=== PATIENT | female | born 1940 | race Caucasian/White ===

== ENCOUNTER → 2019-01-01 | Outpatient (CLI) | payer OTHER ==
[~2019-01-01] MED LIST: ASPI81CH PO; CLIM.025TP TP; CLOP75 PO; ESTR2 PO; Flonase 0.05% N16 GM; GABA300 PO; HYDR1TAB94; LORA10ER PO; LOSA25 PO; MELO7.5 PO; NEBI10 PO; ROSU10TA PO; THYR60 PO; TRAM50 PO; ZOLP5 PO
== END | disposition home or self-care (01) ==
LOC: LAB 17:32 → LAB SHORT 17:32
DX: R31.0 Gross hematuria (principal)
CPT/HCPCS: 87077; 87086; 87186

== ENCOUNTER 2019-02-19 13:47 | Day surgery (SDC) | payer OTHER ==
[~2019-02-19] VITALS: Ht 162.6 cm; Wt 69.8 kg
[~2019-02-19 13:47] MED LIST changes: +ALBU90OI61 INH; +Armour Thyroid90 MG PO; +BISA10S PR; +CYCL10 PO; +Estradiol0.5 MG PO; +MOTION RELIEF25 MG PO; +NEBI5 PO; +Nitrostat0.4 MG SL; +Norco 5-325 Ta1 EACH PO; +PANT40 PO; +ROSU5 PO
== END 2019-02-19 15:49 | disposition home or self-care (01) ==
LOC: ORSCSDS 13:47
PROVIDERS: Internal Medicine Gastroenterology
PROC: 0D758ZZ Dilation of Esophagus, Via Natural or Artificial Opening Endoscopic (ICD-10-PCS; principal; 2019-02-19 15:00)
PROC: 0DB68ZX Excision of Stomach, Via Natural or Artificial Opening Endoscopic, Diagnostic (ICD-10-PCS; principal; 2019-02-19 15:00)
DX: R13.10 Dysphagia, unspecified (principal); K21.9 Gastro-esophageal reflux disease without esophagitis; R11.0 Nausea; K29.70 Gastritis, unspecified, without bleeding; K22.2 Esophageal obstruction; K44.9 Diaphragmatic hernia without obstruction or gangrene; R13.14 Dysphagia, pharyngoesophageal phase; K57.31 Diverticulosis of large intestine without perforation or abscess with bleeding; I25.2 Old myocardial infarction; G47.33 Obstructive sleep apnea (adult) (pediatric); I25.10 Atherosclerotic heart disease of native coronary artery without angina pectoris; G47.30 Sleep apnea, unspecified; Z79.01 Long term (current) use of anticoagulants; Z79.899 Other long term (current) drug therapy
CPT/HCPCS: 87081; J2704; J7120

== ENCOUNTER 2020-05-28 11:28 | Emergency (ER) | payer OTHER ==
[~2020-05-28] VITALS: Ht 162.6 cm; Wt 72.6 kg
[2020-05-28 12:08] LABS: BASOPHILS ABSOLUTE AUTO 0.03 K/mm3 (0.00-0.23); BASOPHILS PERCENT AUTO 0 % (0-2); EOSINOPHILS ABSOLUTE AUTO 0.08 K/mm3 (0.00-0.68); EOSINOPHILS PERCENT AUTO 1 % (0-6); IMMATURE GRAN ABSOLUTE AUTO 0.02 K/mm3 (0.00-0.10); IMMATURE GRAN PERCENT AUTO 0 % (0-1); LYMPHOCYTES ABSOLUTE AUTO 1.36 K/mm3 (0.84-5.20); LYMPHOCYTES PERCENT AUTO 19 % (21-46); MONOCYTES ABSOLUTE AUTO 0.46 K/mm3 (0.16-1.47); MONOCYTES PERCENT AUTO 7 % (4-13); Mean Corpuscular HGB 30.9 pg (26.0-34.0); Mean Corpuscular HGB Conc 33.3 g/dL (31.5-36.5); Mean Corpuscular Volume 93 fL (80-100); Mean Platelet Volume 12.6 fL (9.1-12.4); NEUTROPHILS ABSOLUTE AUTO 5.17 K/mm3 (1.96-9.15); NEUTROPHILS PERCENT AUTO 73 % (41-73); Platelet Count 178 K/mm3 (150-400); RDW Coefficient Variation 11.8 % (11.7-14.2); RDW Standard Deviation 40.4 fL (35.1-46.3); Red Blood Cell Count 4.85 M/mm3 (3.80-5.20); White Blood Cell Count 7.12 K/mm3 (4.00-11.30)
[2020-05-28 12:20] LABS: Albumin, Blood 3.8 g/dL (3.4-5.0); Bilirubin, Total 0.5 mg/dL (0.1-1.0); Bun/Creatinine Ratio 15.4 (12.0-20.0); Calcium, Blood 9.6 mg/dL (8.5-10.1); Creatinine, Blood 1.3 mg/dL (0.40-1.00); Potassium, Blood 4.3 mmol/L (3.5-5.5); Total Protein, Blood 7.8 g/dL (6.4-8.2)
== END 2020-05-28 18:21 | disposition home or self-care (01) ==
LOC: ER 11:28
PROVIDERS: Physician Assistant
DX: R07.9 Chest pain, unspecified (principal); I25.10 Atherosclerotic heart disease of native coronary artery without angina pectoris; E03.9 Hypothyroidism, unspecified; I25.2 Old myocardial infarction; Z87.891 Personal history of nicotine dependence; Z79.899 Other long term (current) drug therapy
CPT/HCPCS: 36415; 71046; 80053; 83880; 84484; 85025; 93005; 93010; 99284-25; A9270-GY

== ENCOUNTER 2022-02-08 20:55 | Inpatient (IN) | payer OTHER ==
[~2022-02-08] VITALS: Ht 160 cm; Wt 77.0 kg
[~2022-02-08 20:55] MED LIST changes: -Armour Thyroid90 MG PO; +MECL25 PO
[2022-02-08 21:59] LABS: Hematocrit 48.4 % (33.0-51.0); Hemoglobin 15.7 g/dL (11.5-16.0); Mean Corpuscular HGB Conc 32.4 g/dL (31.5-36.5); Mean Corpuscular Volume 96 fL (80-100); Mean Platelet Volume 12.8 fL (9.1-12.4); Platelet Count 159 K/mm3 (150-400); RDW Coefficient Variation 12.3 % (11.7-14.2); RDW Standard Deviation 43.7 fL (35.1-46.3); Red Blood Cell Count 5.07 M/mm3 (3.80-5.20)
[2022-02-08 22:00] LABS: White Blood Cell Count 8.01 K/mm3 (4.00-11.30)
[2022-02-08 22:25] LABS: BASOPHILS PERCENT MAN 0 % (0-2); EOSINOPHILS ABSOLUTE MAN 0.32 K/mm3 (0.00-0.68); EOSINOPHILS PERCENT MAN 4 % (0-6); LYMPHOCYTES % ATYPICAL MANUAL 1 % (0-0); LYMPHOCYTES ABSOLUTE MAN 1.36 K/mm3 (0.84-5.20); LYMPHOCYTES PERCENT MAN 16 % (21-46); MONOCYTES ABSOLUTE MAN 0.96 K/mm3 (0.16-1.47); MONOCYTES PERCENT MAN 12 % (4-13); NEUTROPHILS ABSOLUTE MAN 5.36 K/mm3 (1.96-9.15); SEG NEUTROPHILS PERCENT MAN 67 % (41-73); TOTAL CELLS COUNTED 100
[2022-02-08 22:26] LABS: Bilirubin, Total 0.4 mg/dL (0.1-1.0); Bun/Creatinine Ratio 24.1 (12.0-20.0); Calcium, Blood 10.1 mg/dL (8.5-10.1); Creatinine, Blood 1.12 mg/dL (0.40-1.00); Potassium, Blood 4.5 mmol/L (3.5-5.5)
[2022-02-08 23:01] LABS: Source, Urine Clean Catch
[2022-02-08 23:05] LABS: Bilirubin, Urine Neg (Neg); Blood, Urine Neg (Neg); Glucose Qualitative, Urine Neg (Neg); Ketones, Urine Neg (Neg); Leukocyte Esterase, Urine Neg (Neg); Nitrite, Urine Neg (Neg); Protein, Urine Neg (Neg); Specific Gravity, Urine 1.015 (1.003-1.022); Urobilinogen, Urine NORM (Normal)
[2022-02-08 23:12] LABS: Color, Urine Pale Yellow (P-Yellow)
[2022-02-08 23:13] LABS: Appearance, Urine Hazy (Clear)
[2022-02-08 23:14] LABS: Bacteria Many /hpf; Red Blood Cells, Urine Rare /hpf (0-2); Squamous Epithelial Cells Few /hpf (Few); White Blood Cells, Urine 0-2 /hpf (0-5)
[2022-02-08 23:44] LABS: CPK Creatine Kinase 94 U/L (26-193); Creatine Kinase MB 2.8 ng/mL (0.0-3.6); Ethanol (Alcohol), Blood, Med <3 mg/dL
[2022-02-09 00:09] LABS: U Amphetamine Screen Not Detected; U Barbituate Screen Not Detected; U Benzodiazapine Screen Not Detected; U Buprenorphine Screen Not Detected; U Cannabinoids Screen Not Detected; U Cocaine Screen Not Detected; U Methadone Screen Not Detected; U Methamphetamine Screen Not Detected; U Opiates Screen DETECTED; U Oxycodone Screen Not Detected; U Phencyclidine Screen Not Detected; U Propoxyphene Screen Not Detected
[2022-02-09 02:32] LABS: Influenza A, PCR NEGATIVE (NEGATIVE); Influenza B, PCR NEGATIVE (NEGATIVE); Resp Syncytial Virus, PCR NEGATIVE (NEGATIVE); SARS-Cov-2 (COVID-19) PCR, MMC NEGATIVE (NEGATIVE)
[2022-02-09 02:58] LABS: Anti-Xa UFH, PHA Monitoring <0.10 IU/mL; International Normalized Ratio 0.97; Prothrombin Time Results 10.2 Sec (9.7-11.5)
[2022-02-09 06:25] LABS: BASOPHILS ABSOLUTE AUTO 0.05 K/mm3 (0.00-0.23); BASOPHILS PERCENT AUTO 1 % (0-2); EOSINOPHILS ABSOLUTE AUTO 0.17 K/mm3 (0.00-0.68); EOSINOPHILS PERCENT AUTO 2 % (0-6); Hematocrit 40.6 % (33.0-51.0); Hemoglobin 13.2 g/dL (11.5-16.0); IMMATURE GRAN ABSOLUTE AUTO 0.02 K/mm3 (0.00-0.10); IMMATURE GRAN PERCENT AUTO 0 % (0-1); LYMPHOCYTES ABSOLUTE AUTO 2.34 K/mm3 (0.84-5.20); LYMPHOCYTES PERCENT AUTO 28 % (21-46); MONOCYTES PERCENT AUTO 7 % (4-13); Mean Corpuscular HGB 31.2 pg (26.0-34.0); Mean Corpuscular HGB Conc 32.5 g/dL (31.5-36.5); Mean Corpuscular Volume 96 fL (80-100); NEUTROPHILS ABSOLUTE AUTO 5.28 K/mm3 (1.96-9.15); NEUTROPHILS PERCENT AUTO 62 % (41-73); Platelet Count 136 K/mm3 (150-400); RDW Coefficient Variation 12.4 % (11.7-14.2); RDW Standard Deviation 44.1 fL (35.1-46.3); Red Blood Cell Count 4.23 M/mm3 (3.80-5.20); White Blood Cell Count 8.46 K/mm3 (4.00-11.30)
[2022-02-09 06:26] LABS: Mean Platelet Volume 13.8 fL (9.1-12.4)
[2022-02-09 06:45] LABS: Albumin, Blood 3.3 g/dL (3.4-5.0); Albumin/Globulin Ratio 1.1 (0.8-1.8); Bilirubin, Total 0.6 mg/dL (0.1-1.0); Bun/Creatinine Ratio 20.7 (12.0-20.0); Calcium, Blood 9.3 mg/dL (8.5-10.1); Creatinine, Blood 1.16 mg/dL (0.40-1.00); Globulin, Blood 2.9 g/dL (2.2-4.0); Potassium, Blood 4.4 mmol/L (3.5-5.5); Total Protein, Blood 6.2 g/dL (6.4-8.2)
[2022-02-09] MEDS ORDERED: NEURONTIN300 MG PO (07:33)
[2022-02-09] MEDS ORDERED: MONT10T PO (07:34)
[2022-02-09] MEDS ORDERED: BACLOFEN10 M4 PO (07:34)
[2022-02-09] MEDS ORDERED: ASPI81CH PO (13:36)
[2022-02-09] MEDS ORDERED: UBID10 PO (13:39)
[2022-02-09] MEDS ORDERED: VITAMIN D5000 UNIT PO (13:40)
[2022-02-09] MEDS ORDERED: OMEGA-3 21001050 MG PO (13:43)
--- NOTE | 2022-02-09 13:45 | NUR ---
ADMISSION ASSESSMENT: Pt arrived to room PCU 14 via gurney from the ER. Pt able to self transfer from gurney to bed. Pt denied CP or SOB on arrival to unit. LS clear. BT positive. HR reg. Pulses palp. VSS. Pt has scattered bruising on her legs. States this is from hiking yesterday. Pt states that she has some issues with her memory at this time. Seems to be having a hard time finding some words. Pt states this is not normal for her, states she is normally as "sharp as a tack". Plan for one day stress test today. Pt kept NPO at this time. Pt oriented to room, plan of care and unit flow. Denies questions at this time. Call light in Reach.
--- NOTE | 2022-02-09 18:26 | NUR ---
SHIFT SUMMARY: Pt sitting up in bed with visitors at bedside. Has denied Chest pain or SOB throughout the shift. VSS throughout shift. Pt finished her one day lexiscan stress test. Did have a C/O headache after the stress portion. Pt was encouraged to drink a cup of coffee and was given a norco tablet. This seemed to help improve her pain. Plan for NPO after midnight for procedure tomorrow. Pt stable at this time. Call light in reach. Will report to night RN.
--- NOTE | 2022-02-09 20:27 | NUR ---
Assumed care 1900. VSS on RA. Pt will be NPO at midnight. Education given on procedure tomorrow, all questions answered. Tele: SB 50s. Will continue to monitor.
[2022-02-10 04:04] LABS: Bun/Creatinine Ratio 21.6 (12.0-20.0); Calcium, Blood 9.2 mg/dL (8.5-10.1); Creatinine, Blood 1.34 mg/dL (0.40-1.00); Potassium, Blood 4.2 mmol/L (3.5-5.5)
--- NOTE | 2022-02-10 04:12 | NUR ---
Nursing Education Specialist Note: Pt A&O, pleasant with cares. VSS on RA. Pt up independent in room. NPO since midnight. Pt had trouble sleeping even after ambien dose, finally fell asleep at 0300. Pt complained of the blurred vision after ambulating, but resolved. PRN pain meds given per MAR for headache.
--- NOTE | 2022-02-10 07:15 | NUR ---
ASSUMED CARE: PT UP IN SHOWER AT THIS TIME. NO ACUTE NEEDS OR CONCERNS.
--- NOTE | 2022-02-10 10:40 | NUR ---
DR ROJAS CAME TO SEE PT AND STATED THAT STRESS TEST SHOWED AN ABNORMALITY. DR ROJAS STATED HE WOULD FOLLOW UP WITH DR MORRISON TO ENSURE THAT VASCULAR PROCEDURE COULD OCCUR. SPOKE WITH HEART CENTER STAFF WHO STATED PT IS ON SCHEDULE AND HE WOULD MAKE SURE THAT DR THOMSON AND CARDIOLOGY WAS AWARE PRIOR TO PROCEDING WITH PROCEDURE. PT REMAINS NPO AT THIS TIME.
--- NOTE | 2022-02-10 11:25 | NUR ---
DR ROJAS CALLED AND STATED HE SPOKE WITH DR MORRISON. DR MORRISON STATED THAT SHE WILL NOT BE DOING ANY CARDIAC INTERVENTIONS REGARDING STRUCTRUAL ABNORMALITY AND THAT IT IS SAFE TO GO AHEAD WITH DR THOMSON'S PROCEDURE. HEART CENTER STAFF AWARE
--- NOTE | 2022-02-10 16:10 | NUR ---
PT TAKEN TO HEART CENTER BY CHURN OPERATOR MARGARINE STAFF FOR PROCEDURE
--- NOTE | 2022-02-10 17:24 | NUR ---
PT RETURNED FROM PT SKILLED WITH TR BAND TO LEFT RADIAL. 13CC IN PLACE. SLIGHT OLD OOZE NOTED, NO NEW BRUISING OR SIGNS OF BLEEDING OR SWELLING. PT'S NEURO STATUS IN TACT WITH NO NEW DEFICITS NOTED AT THIS TIME. VSS
--- NOTE | 2022-02-10 17:48 | NUR ---
SHIFT SUMMARY: PT RETURNED FROM CATH PROCEDURE WHERE STENT WAS PLACED IN SUBCLAVIAN. TR BAND TO L-RADIAL WITH 13CC IN PLACE. SMALL BRUISE NOTED AT INSERTION SITE. VSS AT THIS TIME. NO NEURO DEFICITS NOTED
--- NOTE | 2022-02-10 18:44 | NUR ---
PT CALLED RN TO LOOK AT A SORE ON HIS LEFT GLUTE THAT HE FELT WAS HERPES INFECTION. SITE IS RED AND BLISTERED. REPORTED TO HOSPITALIST SO THEY CAN EXAMINE. DR INSTRUCTED TO JUST WATCH FOR NOW AND THEY WILL REEXAMINE IN THE MORNING.
--- NOTE | 2022-02-11 05:38 | NUR ---
SHIFT SUMMARY Assumed care of pt at 1900, A/O x4. Reports no CP/pressure. SR-SB on tele avg 50-60. VSS. R radial site with TR band completely deflated, small amount of ecchymosis just distal to site, small amount of old sanguineous drainage. No acute events overnight. Will report to dayshift ADAN.
--- NOTE | 2022-02-11 12:28 | NUR ---
DISCHARGE UPDATE DICHARGE PACKET GONE OVER WITH PT AT 1130. PT LEFT UNIT AT 1215 VIA WHEELCHAIR AND ON RA. PT BELONGINGS IN BAGS AND WITH PT DURING DISCHARGE. PT ABLE TO DRESS SELF AND TRANSFER SELF TO AND FROM WHEELCHAIR, TOLERATED WELL. DISCHARGE PACKET AND STENT CARD WITH PT DURING DISCHARGE.
== END 2022-02-11 12:14 | disposition home or self-care (01) | DRG 253 ==
LOC: ER 20:55 → PCU 02-09 02:18 → ER 02-09 02:18 → ERHOLD 02-09 02:29 → PCU 02-09 02:29
PROVIDERS: Emergency Medicine; Family Medicine; Internal Medicine; Student in an Organized Health Care Education/Training Program; ADMIT Family Medicine
PROC: 03743DZ Dilation of Left Subclavian Artery with Intraluminal Device, Percutaneous Approach (ICD-10-PCS; principal; 2022-02-10)
PROC: B3121ZZ Fluoroscopy of Left Subclavian Artery using Low Osmolar Contrast (ICD-10-PCS; 2022-02-10)
DX: I77.1 Stricture of artery (principal); G45.8 Other transient cerebral ischemic attacks and related syndromes; Z20.822 Contact with and (suspected) exposure to COVID-19; R47.81 Slurred speech; I25.10 Atherosclerotic heart disease of native coronary artery without angina pectoris; N18.30 Chronic kidney disease, stage 3 unspecified; E03.9 Hypothyroidism, unspecified; M79.7 Fibromyalgia; I25.2 Old myocardial infarction; I12.9 Hypertensive chronic kidney disease with stage 1 through stage 4 chronic kidney disease, or unspecified chronic kidney disease; E78.5 Hyperlipidemia, unspecified; G47.33 Obstructive sleep apnea (adult) (pediatric); D63.1 Anemia in chronic kidney disease; Z88.5 Allergy status to narcotic agent; Z96.653 Presence of artificial knee joint, bilateral; Z79.02 Long term (current) use of antithrombotics/antiplatelets; Z79.899 Other long term (current) drug therapy; Z90.13 Acquired absence of bilateral breasts and nipples; Z90.710 Acquired absence of both cervix and uterus; Z98.890 Other specified postprocedural states; Z95.5 Presence of coronary angioplasty implant and graft; Z87.891 Personal history of nicotine dependence; Z79.82 Long term (current) use of aspirin
CPT/HCPCS: 0241U; 36415; 37236; 70450; 70551; 71045; 71046; 75710; 76937; 78452; 80048; 80053; 81001; 82140; 82550; 82553; 83605; 83880; 84443; 84484; 85025; 85520; 85610; 85730; 87086; 93005; 93010; 93017; 93308; 93321; 93880; 94760; 99152; 99153; 99285-25; A9270; A9500; C1769; C1876; C1887; C1894; G0480; J0706; J1644; J2250; J2405; J2785; J3010; J7030; J7040; Q9967

== ENCOUNTER 2023-09-06 19:58 | Inpatient (IN) | payer OTHER ==
[~2023-09-06] VITALS: Ht 162.6 cm; Wt 81.7 kg
[~2023-09-06 19:58] MED LIST changes: +ALBU90OI INH; -ALBU90OI61 INH; +BACLOFEN10 M4 PO; +MONT10T PO; +NEURONTIN300 MG PO; +OMEGA-3 21001050 MG PO; +UBID10 PO; +VITAMIN D5000 UNIT PO
[2023-09-06 20:53] LABS: BASOPHILS ABSOLUTE AUTO 0.02 K/mm3 (0.00-0.23); BASOPHILS PERCENT AUTO 0 % (0-2); EOSINOPHILS PERCENT AUTO 0 % (0-6); Hematocrit 49.6 % (33.0-51.0); Hemoglobin 17.1 g/dL (11.5-16.0); IMMATURE GRAN ABSOLUTE AUTO 0.07 K/mm3 (0.00-0.10); IMMATURE GRAN PERCENT AUTO 0 % (0-1); LYMPHOCYTES ABSOLUTE AUTO 1.08 K/mm3 (0.84-5.20); LYMPHOCYTES PERCENT AUTO 7 % (21-46); MONOCYTES ABSOLUTE AUTO 0.72 K/mm3 (0.16-1.47); MONOCYTES PERCENT AUTO 5 % (4-13); Mean Corpuscular HGB 31.7 pg (26.0-34.0); Mean Corpuscular HGB Conc 34.5 g/dL (31.5-36.5); Mean Corpuscular Volume 92 fL (80-100); NEUTROPHILS PERCENT AUTO 88 % (41-73); Platelet Count 167 K/mm3 (150-400); RDW Coefficient Variation 11.8 % (11.7-14.2); RDW Standard Deviation 39.7 fL (35.1-46.3); Red Blood Cell Count 5.39 M/mm3 (3.80-5.20); White Blood Cell Count 15.79 K/mm3 (4.00-11.30)
[2023-09-06 21:15] LABS: Albumin, Blood 4.5 g/dL (3.4-5.0); Bilirubin, Total 0.7 mg/dL (0.1-1.0); Bun/Creatinine Ratio 20.4 (12.0-20.0); Calcium, Blood 10.4 mg/dL (8.5-10.1); Creatinine, Blood 1.52 mg/dL (0.40-1.00); Globulin, Blood 4.5 g/dL (2.2-4.0); Potassium, Blood 4.3 mmol/L (3.5-5.5)
[2023-09-06 21:29] LABS: Influenza A, PCR NEGATIVE (NEGATIVE); Influenza B, PCR NEGATIVE (NEGATIVE); Resp Syncytial Virus, PCR NEGATIVE (NEGATIVE)
[2023-09-06 21:41] LABS: SARS-Cov-2 (COVID-19) PCR, MMC POSITIVE (NEGATIVE)
[2023-09-06 23:03] LABS: Source, Urine Straight Cath
[2023-09-06 23:33] LABS: Bilirubin, Urine Neg (Neg); Blood, Urine Neg (Neg); Glucose Qualitative, Urine Neg (Neg); Ketones, Urine Neg (Neg); Leukocyte Esterase, Urine Neg (Neg); Nitrite, Urine Neg (Neg); Protein, Urine 2+ (Neg); Urobilinogen, Urine NORM (Normal)
[2023-09-06 23:39] LABS: Appearance, Urine Clear (Clear); Color, Urine Yellow (P-Yellow)
[2023-09-06 23:41] LABS: Bacteria Few /hpf; Red Blood Cells, Urine 0-2 /hpf (0-2); White Blood Cells, Urine 0-2 /hpf (0-5)
[2023-09-06 23:42] LABS: Squamous Epithelial Cells Many /hpf (Few)
[2023-09-07] MEDS ORDERED: FLUTICASONE-SA1 EAC9 INH (03:07)
[2023-09-07] MEDS ORDERED: REPATHA SU140 MG/1 M SC (03:09)
[2023-09-07 03:10] LABS: Base Excess Venous -3.7 mmol/L; Bicarbonate Venous 22.5 mmol/L (24.0-30.0); pH Blood Venous 7.45 (7.34-7.37)
[2023-09-07] MEDS ORDERED: LEVOTHYROXINE112 M18 PO (03:11)
[2023-09-07] MEDS ORDERED: ESTRADIOL42.5 GM VAG (03:12)
[2023-09-07 03:22] LABS: BASOPHILS ABSOLUTE AUTO 0.02 K/mm3 (0.00-0.23); BASOPHILS PERCENT AUTO 0 % (0-2); EOSINOPHILS PERCENT AUTO 0 % (0-6); Hematocrit 43.2 % (33.0-51.0); Hemoglobin 14.7 g/dL (11.5-16.0); IMMATURE GRAN ABSOLUTE AUTO 0.06 K/mm3 (0.00-0.10); IMMATURE GRAN PERCENT AUTO 1 % (0-1); LYMPHOCYTES ABSOLUTE AUTO 0.83 K/mm3 (0.84-5.20); LYMPHOCYTES PERCENT AUTO 7 % (21-46); MONOCYTES ABSOLUTE AUTO 0.51 K/mm3 (0.16-1.47); MONOCYTES PERCENT AUTO 4 % (4-13); Mean Corpuscular HGB 31.3 pg (26.0-34.0); Mean Corpuscular Volume 92 fL (80-100); Mean Platelet Volume 12.8 fL (9.1-12.4); NEUTROPHILS ABSOLUTE AUTO 10.75 K/mm3 (1.96-9.15); NEUTROPHILS PERCENT AUTO 88 % (41-73); Platelet Count 147 K/mm3 (150-400); RDW Coefficient Variation 11.7 % (11.7-14.2); RDW Standard Deviation 39.4 fL (35.1-46.3); White Blood Cell Count 12.17 K/mm3 (4.00-11.30)
[2023-09-07 04:00] LABS: Albumin, Blood 3.7 g/dL (3.4-5.0); Anion Gap 7 mmol/L (6-16); Blood Urea Nitrogen 28 mg/dL (8-24); Bun/Creatinine Ratio 20.9 (12.0-20.0); CO2, Blood 21 mmol/L (21-32); Chloride, Blood 115 mmol/L (98-108); Creatinine, Blood 1.34 mg/dL (0.40-1.00); Glomerular Filtration Rate 40 (60-); Glucose, Blood 130 mg/dL (70-99); Phosphorus, Blood 2.9 mg/dL (2.5-4.9); Potassium, Blood 4.2 mmol/L (3.5-5.5); Sodium, Blood 143 mmol/L (136-145); Thyroid Stimulating Hormone 0.706 uIU/mL (0.360-4.800)
--- NOTE | 2023-09-07 06:23 | NUR ---
ADMIT NOTE 83 YR OLD FEMALE ADMITTED TOTHE FLOOR FROM THE ED AITH DX OF AMS AND COVID +. ED RN REPORTED PT WAS FOUND DOWN AT HOME AND NEIGHBOR CALLED FOR AMBULANCE, ARRIVED AND WAS AGITATED AT TIMES, VERBALLY MUMBLED AND BECAME VIOLENT PULLED OUT IV, TELE AND TRIED TO "BITE" AND STRIKE AT STAFF. RECEIVED IM ZYPREXA AND WENT TO SLEEP. NEW IV PLACED AND PT TAKEN TO FLOOR. VERY AGITATED, TRIED TO AGAIN PULL OUT IV, PLACED IN BILAT SOFT WRIST RETRAINTS PER MD ORDER. IVF OF LR INFUSING. ON ENHANCED DROPLET PRECAUTIONS FOR COVID. CALL LIGHT IN REACH. HOB ELEVATED. RAILS UP X 3. WILL CONT TO MONITOR/ASSESS.
[2023-09-07 08:15] VITALS: BP 150/72
[2023-09-07 15:13] VITALS: BP 123/54
[2023-09-07] MEDS ORDERED: PAXLOVID 300-11 EAC1 PO (15:26)
[2023-09-07] MEDS ORDERED: UBID10 PO (15:26)
[2023-09-07] MEDS ORDERED: GUAI600T33 PO (15:26)
[2023-09-07] MEDS ORDERED: ALLEGRA ALLERG180 MG PO (15:27)
[2023-09-07] MEDS ORDERED: FLUT1DIS5 INH (15:27)
[2023-09-07] MEDS ORDERED: NITR.4SL SL (15:28)
--- NOTE | 2023-09-07 18:27 | NUR ---
DAYSHIFT SUMMARY Handoff report, NOC RN said patient confused and agitated in ER. Patient sleeping, wrist restraints, COVID +, camera in place to monitor for safety. Removed wrist restraints at 1030. This afternoon patient completly AOx4, pleasant & cooperative. Cardiac diet ordered, patient swallows pills whole. med rec complete. DC camera monitoring. IV ABX adminsitred. Will continue plan of care.
[2023-09-07 20:01] VITALS: BP 113/56
[2023-09-08 03:13] VITALS: BP 125/56
--- NOTE | 2023-09-08 04:41 | NUR ---
PT A&O x3-4, VSS, AFEBRILE, PT ON RA. PT CALM AND COOPERATIVE WITH CARE PROVIDED. PT C/O FREY, RATING THE PAIN A 8/10. PT TAKES HYDROCODONE AT HOME. NEW ORDER FOR PRN HYDROCODONE 5/325mg GIVEN x2 WITH GOOD EFFECTS. AN ICE PACK WAS GIVEN IN ADDITION TO HELP ALLEVIATE THE DISCOMFORT. ENCOURAGED PT TO PUSH FLUIDS. PT WANTED TO KNOW WHAT HAPPENED THE NIGHT BEFORE. PT DID NOT REMEMBER HAVING SOFT WRIST RESTRAINTS D/T BEHAVIORS. PT AMBULATES WELL WITH 1P SBA WITH FWW TO THE BATHROOM, STEADY GAIT. PT ABLE TO MAKE NEEDS KNOWN APPROPRIATELY. NO BEHAVIORS NOTED OVERNIGHT. PT STAYED UP ALL NIGHT, PT DID NOT SLEEP WELL. CALL LIGHT WITHIN REACH, WCTM.
[2023-09-08 05:59] LABS: BASOPHILS ABSOLUTE AUTO 0.03 K/mm3 (0.00-0.23); BASOPHILS PERCENT AUTO 0 % (0-2); EOSINOPHILS ABSOLUTE AUTO 0.04 K/mm3 (0.00-0.68); EOSINOPHILS PERCENT AUTO 1 % (0-6); Hematocrit 39.3 % (33.0-51.0); Hemoglobin 13.3 g/dL (11.5-16.0); IMMATURE GRAN ABSOLUTE AUTO 0.02 K/mm3 (0.00-0.10); IMMATURE GRAN PERCENT AUTO 0 % (0-1); LYMPHOCYTES ABSOLUTE AUTO 2.44 K/mm3 (0.84-5.20); LYMPHOCYTES PERCENT AUTO 30 % (21-46); MONOCYTES ABSOLUTE AUTO 0.72 K/mm3 (0.16-1.47); MONOCYTES PERCENT AUTO 9 % (4-13); Mean Corpuscular HGB 31.6 pg (26.0-34.0); Mean Corpuscular HGB Conc 33.8 g/dL (31.5-36.5); Mean Corpuscular Volume 93 fL (80-100); Mean Platelet Volume 12.5 fL (9.1-12.4); NEUTROPHILS ABSOLUTE AUTO 4.78 K/mm3 (1.96-9.15); NEUTROPHILS PERCENT AUTO 60 % (41-73); Platelet Count 121 K/mm3 (150-400); Red Blood Cell Count 4.21 M/mm3 (3.80-5.20); White Blood Cell Count 8.03 K/mm3 (4.00-11.30)
[2023-09-08 06:16] LABS: Bun/Creatinine Ratio 23.8 (12.0-20.0); Calcium, Blood 8.7 mg/dL (8.5-10.1); Creatinine, Blood 1.47 mg/dL (0.40-1.00); Potassium, Blood 3.4 mmol/L (3.5-5.5)
[2023-09-08 07:50] VITALS: BP 105/93
--- NOTE | 2023-09-08 14:23 | NUR ---
CALLED CALLED TO NOTIFY OF PT'S BLOOD CULTURE RESULTS. BLOOD CULTURE RESULTS GRAM + COCCI IN CHAINS.
[2023-09-08 16:32] VITALS: BP 131/63
--- NOTE | 2023-09-08 17:45 | NUR ---
SHIFT SUMMARY PT A&OX3, CONT TO BE CONFUSED AT TIMES W/ TIME, DATE, MEDICATIONS, AND PROCEDURES. PT AMB W/ 1 SBA ASSIST W/ FWW, IS TOLERATING PO, VOIDING, ON TELE W/ NO EVENTS, AND DENIED PAIN. PT ADMITS TO NO DIARRHEA THIS SHIFT. IV POTASSIUM GIVEN THIS AM. CALL LIGHT WITHIN REACH AND PT ABLE TO MAKE NEEDS KNOW.
[2023-09-08 20:20] VITALS: BP 119/63
--- NOTE | 2023-09-09 03:20 | NUR ---
END OF SHIFT SUMMARY PT A&O x4 WITH SOME FORGETFULNESS. VSS, AFEBRILE, PT ON RA, NO SIGNS OF RESP DISTRESS NOTED. PT FINALLY GOT SOME GOOD SLEEP. PRN HYDROCODONE GIVEN FOR CHRONIC LEG PAIN AND FREY. PT RATED HER PAIN A 7/10. PT REQUESTING AMBIEN, WHICH SHE TAKES AT HOME NEEDED AT NIGHT. PRN 5mg PO AMBIEN GIVEN AND EFFECTIVE. PT PLEASANT AND COOPERATIVE WITH CARE PROVIDED. PT WORKING WELL WITH PHYSICAL THERAPY. CALL LIGHT WITHIN REACH, WCTM.
[2023-09-09 06:33] VITALS: BP 116/54
[2023-09-09 07:00] VITALS: BP 190/83
[2023-09-09 08:57] LABS: BASOPHILS ABSOLUTE AUTO 0.03 K/mm3 (0.00-0.23); BASOPHILS PERCENT AUTO 0 % (0-2); EOSINOPHILS ABSOLUTE AUTO 0.07 K/mm3 (0.00-0.68); EOSINOPHILS PERCENT AUTO 1 % (0-6); Hematocrit 41.3 % (33.0-51.0); Hemoglobin 13.7 g/dL (11.5-16.0); IMMATURE GRAN ABSOLUTE AUTO 0.03 K/mm3 (0.00-0.10); IMMATURE GRAN PERCENT AUTO 0 % (0-1); LYMPHOCYTES ABSOLUTE AUTO 1.57 K/mm3 (0.84-5.20); LYMPHOCYTES PERCENT AUTO 20 % (21-46); MONOCYTES ABSOLUTE AUTO 0.68 K/mm3 (0.16-1.47); MONOCYTES PERCENT AUTO 9 % (4-13); Mean Corpuscular HGB 31.1 pg (26.0-34.0); Mean Corpuscular HGB Conc 33.2 g/dL (31.5-36.5); Mean Corpuscular Volume 94 fL (80-100); Mean Platelet Volume 12.8 fL (9.1-12.4); NEUTROPHILS PERCENT AUTO 69 % (41-73); Platelet Count 113 K/mm3 (150-400); RDW Coefficient Variation 11.9 % (11.7-14.2); RDW Standard Deviation 41.7 fL (35.1-46.3); Red Blood Cell Count 4.41 M/mm3 (3.80-5.20); White Blood Cell Count 7.68 K/mm3 (4.00-11.30)
[2023-09-09 09:09] LABS: Bun/Creatinine Ratio 22.5 (12.0-20.0); Calcium, Blood 8.7 mg/dL (8.5-10.1); Creatinine, Blood 1.42 mg/dL (0.40-1.00); Magnesium, Blood 1.8 mg/dL (1.6-2.4); Potassium, Blood 3.8 mmol/L (3.5-5.5)
[2023-09-09] MEDS ORDERED: MONT10T PO (11:03)
--- NOTE | 2023-09-09 11:51 | NUR ---
DISCHARGE NOTE PT DISCHARGED HOME AT APPROX 11:35. PT AND PT'S FRIEND PROVIDED W/ VERBAL AND WRITTEN INSTRUCTIONS AND REPORTED UNDERSTANDING. PT A&OX4, EASILY CONFUSED AT TIMES, AMB IND W/ SBA, VSS, TOLERATING PO, VOIDING, AND DENIED PAIN. BELONINGS WERE RETURNED AND PT AND PT'S FRIEND ESCOURTED OUT VIA W/C BY WALKER COLON.
== END 2023-09-09 11:42 | disposition home health service (06) | DRG 871 ==
LOC: ER 19:58 → ERHOLD 09-07 03:07 → MEDS 09-07 03:07 → ENPENDDIS 09-09 09:11 → MEDS 09-09 11:42
PROVIDERS: Emergency Medicine; Family Medicine; Student in an Organized Health Care Education/Training Program; ADMIT Internal Medicine
PROC: XW033E5 Introduction of Remdesivir Anti-infective into Peripheral Vein, Percutaneous Approach, New Technology Group 5 (ICD-10-PCS; principal; 2023-09-07)
PROC: 3E03329 Introduction of Other Anti-infective into Peripheral Vein, Percutaneous Approach (ICD-10-PCS; 2023-09-07)
PROC: 8E0ZXY6 Isolation (ICD-10-PCS; 2023-09-07)
PROC: 5A09357 Assistance with Respiratory Ventilation, Less than 24 Consecutive Hours, Continuous Positive Airway Pressure (ICD-10-PCS; 2023-09-07)
DX: A41.89 Other specified sepsis (principal); G92.8 Other toxic encephalopathy; U07.1 COVID-19; I25.10 Atherosclerotic heart disease of native coronary artery without angina pectoris; E03.9 Hypothyroidism, unspecified; E86.0 Dehydration; M79.7 Fibromyalgia; G47.30 Sleep apnea, unspecified; G89.29 Other chronic pain; N18.30 Chronic kidney disease, stage 3 unspecified; D69.6 Thrombocytopenia, unspecified; R54 Age-related physical debility; T56.891A Toxic effect of other metals, accidental (unintentional), initial encounter; I49.3 Ventricular premature depolarization; B96.89 Other specified bacterial agents as the cause of diseases classified elsewhere; I25.2 Old myocardial infarction; Z90.710 Acquired absence of both cervix and uterus; Z78.1 Physical restraint status; Z95.5 Presence of coronary angioplasty implant and graft; Z90.13 Acquired absence of bilateral breasts and nipples; Z96.653 Presence of artificial knee joint, bilateral; Z98.890 Other specified postprocedural states; Z87.891 Personal history of nicotine dependence; Z88.5 Allergy status to narcotic agent
CPT/HCPCS: 0241U; 36415; 70450; 71045; 80048; 80053; 80069; 81001; 82140; 82550; 82803; 83605; 83735; 84145; 84443; 85025; 87040; 87077; 93005; 93010; 94640; 94660; 94664; 94762; 96361; 96372; 96374; 97116; 97161; 99285-25; A9270; J0248; J1644; J2405; J3480; J7030; J7050; J7120

== ENCOUNTER 2024-07-03 18:08 | Inpatient (IN) | payer OTHER ==
[~2024-07-03] VITALS: Ht 162.6 cm; Wt 71.3 kg
[~2024-07-03 18:08] MED LIST changes: +ALLEGRA ALLERG180 MG PO; +ESTRADIOL42.5 GM VAG; +FLUT1DIS5 INH; +FLUTICASONE-SA1 EAC9 INH; +GUAI600T33 PO; +LEVOTHYROXINE112 M18 PO; +NITR.4SL SL; +PAXLOVID 300-11 EAC1 PO; +REPATHA SU140 MG/1 M SC
[2024-07-03] MEDS ORDERED: Diltiazem HCl 5 MG / ML 5ML Vial IV ONE (18:20)
[2024-07-03 18:28] LABS: BASOPHILS ABSOLUTE AUTO 0.04 K/mm3 (0.00-0.23); BASOPHILS PERCENT AUTO 0 % (0-2); EOSINOPHILS ABSOLUTE AUTO 0.08 K/mm3 (0.00-0.68); EOSINOPHILS PERCENT AUTO 1 % (0-6); Hematocrit 44.4 % (33.0-51.0); Hemoglobin 14.9 g/dL (11.5-16.0); IMMATURE GRAN ABSOLUTE AUTO 0.03 K/mm3 (0.00-0.10); IMMATURE GRAN PERCENT AUTO 0 % (0-1); LYMPHOCYTES ABSOLUTE AUTO 1.29 K/mm3 (0.84-5.20); LYMPHOCYTES PERCENT AUTO 11 % (21-46); MONOCYTES PERCENT AUTO 6 % (4-13); Mean Corpuscular HGB 31.4 pg (26.0-34.0); Mean Corpuscular HGB Conc 33.6 g/dL (31.5-36.5); Mean Corpuscular Volume 94 fL (80-100); Mean Platelet Volume 12.8 fL (9.1-12.4); NEUTROPHILS ABSOLUTE AUTO 9.88 K/mm3 (1.96-9.15); NEUTROPHILS PERCENT AUTO 82 % (41-73); Platelet Count 170 K/mm3 (150-400); RDW Coefficient Variation 11.7 % (11.7-14.2); RDW Standard Deviation 40.1 fL (35.1-46.3); Red Blood Cell Count 4.75 M/mm3 (3.80-5.20); White Blood Cell Count 12.02 K/mm3 (4.00-11.30)
[2024-07-03 18:55] LABS: Magnesium, Blood 2.4 mg/dL (1.6-2.4)
[2024-07-03 19:13] LABS: Albumin, Blood 3.6 g/dL (3.4-5.0); Bilirubin, Total 0.3 mg/dL (0.1-1.0); Bun/Creatinine Ratio 21.1 (12.0-20.0); Creatinine, Blood 1.33 mg/dL (0.40-1.00); Globulin, Blood 3.7 g/dL (2.2-4.0); Potassium, Blood 4.6 mmol/L (3.5-5.5); Total Protein, Blood 7.3 g/dL (6.4-8.2)
[2024-07-03] MEDS ORDERED: Magnesium Hydroxide Conc 10 ML UDC PO PRN (20:20)
[2024-07-03] MEDS ORDERED: FLU VACC TS2024-25(6MOS UP)/PF 45 MCG/0.5 ML SYRINGE IM SCH (20:20)
[2024-07-03] MEDS ORDERED: Nitroglycerin 0.4 MG SUBL SL PRN (20:50)
[2024-07-03] MEDS ORDERED: Diltiazem HCl 5 MG / ML 5ML Vial IV PRN (21:10)
[2024-07-03] MEDS ORDERED: NS 1,000 ML IV SCH (21:40)
[2024-07-03] MEDS ORDERED: Aspirin 325 MG Tab PO ONE (22:00)
[2024-07-03] MEDS ORDERED: Rivaroxaban 2.5 MG TABLET PO SCH (22:00)
[2024-07-03] MEDS ORDERED: Metoprolol Tartrate 25 MG Tab PO SCH (22:00)
[2024-07-03 22:11] LABS: Anti-Xa UFH, PHA Monitoring <0.10 IU/mL; International Normalized Ratio 0.91; Prothrombin Time Results 9.8 Sec (9.7-11.5)
[2024-07-03] MEDS ORDERED: Heparin Sodium 5000 Units/ML 1ML MDV IV ONE (22:25)
[2024-07-03] MEDS ORDERED: Heparin Sodium,Porcine/0.5 NS 500 ML IV SCH (22:25)
[2024-07-03] MEDS ORDERED: Zolpidem Tartrate 5 MG Tab PO PRN (23:55)
[2024-07-04] VITALS (13 sets, daily range): BP systolic 106–136; BP diastolic 59–90
[2024-07-04] MEDS ORDERED: Baclofen 10 MG Tab PO PRN (01:50)
[2024-07-04] MEDS ORDERED: HYDROcodone 5-APAP 325 TAB PO PRN (01:50)
[2024-07-04] MEDS ORDERED: Mometasone/Formoterol MDI 200/5 mcg 13 GM INH SCH (03:00)
[2024-07-04] MEDS ORDERED: Albuterol HFA200 ACT/6.7 GM INH INH PRN (03:00)
[2024-07-04 03:19] LABS: BASOPHILS ABSOLUTE AUTO 0.02 K/mm3 (0.00-0.23); BASOPHILS PERCENT AUTO 0 % (0-2); EOSINOPHILS ABSOLUTE AUTO 0.09 K/mm3 (0.00-0.68); EOSINOPHILS PERCENT AUTO 1 % (0-6); Hematocrit 40.2 % (33.0-51.0); Hemoglobin 13.7 g/dL (11.5-16.0); IMMATURE GRAN ABSOLUTE AUTO 0.02 K/mm3 (0.00-0.10); IMMATURE GRAN PERCENT AUTO 0 % (0-1); LYMPHOCYTES ABSOLUTE AUTO 2.57 K/mm3 (0.84-5.20); LYMPHOCYTES PERCENT AUTO 30 % (21-46); MONOCYTES ABSOLUTE AUTO 0.82 K/mm3 (0.16-1.47); MONOCYTES PERCENT AUTO 10 % (4-13); Mean Corpuscular HGB 31.4 pg (26.0-34.0); Mean Corpuscular HGB Conc 34.1 g/dL (31.5-36.5); Mean Corpuscular Volume 92 fL (80-100); NEUTROPHILS ABSOLUTE AUTO 5.13 K/mm3 (1.96-9.15); NEUTROPHILS PERCENT AUTO 59 % (41-73); Platelet Count 165 K/mm3 (150-400); RDW Coefficient Variation 11.9 % (11.7-14.2); RDW Standard Deviation 39.9 fL (35.1-46.3); Red Blood Cell Count 4.36 M/mm3 (3.80-5.20); White Blood Cell Count 8.65 K/mm3 (4.00-11.30)
[2024-07-04 03:41] LABS: Albumin, Blood 3.2 g/dL (3.4-5.0); Bilirubin, Total 0.4 mg/dL (0.1-1.0); Bun/Creatinine Ratio 20.4 (12.0-20.0); Calcium, Blood 8.3 mg/dL (8.5-10.1); Creatinine, Blood 1.37 mg/dL (0.40-1.00); Globulin, Blood 3.3 g/dL (2.2-4.0); Potassium, Blood 4.3 mmol/L (3.5-5.5); Total Protein, Blood 6.5 g/dL (6.4-8.2)
[2024-07-04] MEDS ORDERED: Levothyroxine Sodium 0.112 MG Tab PO SCH (06:00)
[2024-07-04] MEDS ORDERED: Dose Adjust by Pharmacy XX STA ×2 (06:16→12:23)
[2024-07-04] MEDS ORDERED: Montelukast Sodium 10 MG Tab PO SCH (09:00)
[2024-07-04] MEDS ORDERED: Clopidogrel Bisulfate 75 MG Tab PO SCH (09:00)
[2024-07-04] MEDS ORDERED: Metoprolol Tartrate 25 MG Tab PO SCH (09:00)
[2024-07-04] MEDS ORDERED: Enoxaparin 40 MG/0.4 ML SYR SC SCH (09:00)
[2024-07-04] MEDS ORDERED: Verapamil HCL 2.5 MG/ML 2ML Injection ONE (13:08)
[2024-07-04] MEDS ORDERED: Heparin Sodium 1000 Units/ML 10ML MDV ONE (13:08)
[2024-07-04] MEDS ORDERED: NS 250 ML IV ONE (13:09)
[2024-07-04] MEDS ORDERED: NS 2,000 ML IV ONE (13:09)
[2024-07-04] MEDS ORDERED: Midazolam HCl 1MG / ML 2ML Vial ONE (13:56)
[2024-07-04] MEDS ORDERED: FentaNYL Citrate 50 MCG/ML 2 ML Injection ONE (13:56)
[2024-07-04] MEDS ORDERED: Ondansetron HCl 2 MG / ML 2ML Vial ONE (14:04)
--- NOTE | 2024-07-04 14:05 | NUR ---
PT IN DATA INTEGRATION ANALYST AT THIS TIME FOR ANGIOGRAM.
[2024-07-04] MEDS ORDERED: Tirofiban HCL Monohydrate 3.75 MG/15 ML Vial ONE (14:31)
[2024-07-04] MEDS ORDERED: Aspirin 325 MG Tab ONE (14:43)
[2024-07-04] MEDS ORDERED: Clopidogrel Bisulfate 300 MG Cap ONE (14:46)
[2024-07-04] MEDS ORDERED: Clopidogrel Bisulfate 300 MG Cap PO ONE (14:55)
--- NOTE | 2024-07-04 15:44 | NUR ---
UPDATE: PT ARRIVED BACK TO PCU FROM NURSES' ASSOCIATION EXECUTIVE DIRECTOR AT APPROX 1520. PT A/OX4, SITTING UP CONVERSING W/ STAFF. R RADIAL ACCESS SITE. SITE INTACT W/O BLEEDING, BRUISING, OR HEMATOMA FORMATION. 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 ULNAR PULSE PALPABLE. PER NURSES' ASSOCIATION EXECUTIVE DIRECTOR RN, 11CC IN TR BAND. VSS FOLLOWING PROCEDURE. ON ROOM AIR, EVEN & UNLABORED RESPIRATIONS. PT DENIES PAIN. PROVIDED W/ SNACK. EDUCATED PT ON RUE RESTRICTIONS, PT VOICED UNDERSTANDING. ARMBOARD IN PLACE. NO OTHER NEEDS AT THIS TIME, CALL LIGHT IN REACH.
--- NOTE | 2024-07-04 16:49 | NUR ---
END OF SHIFT NOTE: NO ACUTE EVENTS FOLLOWING ARRIVAL BACK TO PCU FROM STOCKBROKING DEALER, SEE PREVIOUS NOTE. VITAL SIGNS REMAIN STABLE. HR 70'S, SINUS ON TELE. SBP 110-130'S, DENIES CHEST PAIN/PRESSURE. SPO2 90% ON ROOM AIR. TR BAND REMAINS IN PLACE TO R RADIAL SITE W/ ARMBOARD. NO BLEEDING, BRUISING, OR HEMATOMA FORMATION PRESENT. CYANOSIS TO R HAND AND FINGER SLIGHTLY IMPROVED AT THIS TIME. TOLERATING PO INTAKE WELL. NO OTHER NEEDS AT THIS TIME. CALL LIGHT IN REACH. REPORT TO NOEMY ARELLANO TO ASSUME CARE OF PT FOR REMAINDER OF SHIFT.
--- NOTE | 2024-07-04 17:20 | NUR ---
ASSUMED CARE NOTE: GIVEN REPORT FROM PREVIOUS NURSE AND SITE CHECKED WITH NURSE AT BEDSIDE. NO BLEEDING OR HEMATOMA AND IS TENDER WITH THE TR BAND PLACED. PATIENT WATCHING TV AND HAS CALL LIGHT WITHIN REACH, BED AT THE LOWEST POSITION.
--- NOTE | 2024-07-04 18:02 | NUR ---
END OF SHIFT SUMMARY: PT IS A&OX4 AND ACTIVE IN HER CARE. IS SATTING >92% ON ROOM AIR. ON TELE SHOWING FIRST DEGREE WITH AN AV BBB WITH RATE IN 70'S. ANGIOGRAM DONE AND ACCESS SITE IS RIGHT RADIAL, NO HEMATOMA AND SLIGHT BLEEDING WITH TWO CC'S REMOVED THE FIRST TIME. UPON SECOND ATTEMPT TO REMOVE MORE AIR THERE WAS A LITTLE BIT MORE BLEEDING AND PT STATED SHE WAS NO PLAVIX,ASPIRIN AND HEPARIN SO WE PLACED 1 CC BACK INTO THE BALOON SO CURRENTLY THERE IS 10CC'S IN IT. PER ASSUME OF CARE TODAY AT 1700 PATIENT IS A 1 PERSON ASSIT TO MANAGE LINES/CHORDS. WILL NOTIFY TO ONCOMING MUSIC INDUSTRY INTERNSHIP RN.
[2024-07-05] VITALS: BP 121/68
[2024-07-05 04:00] VITALS: BP 101/54
--- NOTE | 2024-07-05 07:18 | NUR ---
NOC SHIFT SUMMARY TR BAND REMOVED @ 2355, PT TOLERATED WELL. NO HEMATOMA, OOZING. FREY X1 OVERNIGHT. PRNS GIVEN. PT SLEPT WELL. OVERNIGHT OX COMPLETED. PLAN FOR POSSIBLE DC TODAY. DENIES CP/PRESSURE. VSS.
[2024-07-05 07:56] VITALS: BP 101/60
[2024-07-05 08:35] LABS: BASOPHILS ABSOLUTE AUTO 0.03 K/mm3 (0.00-0.23); BASOPHILS PERCENT AUTO 0 % (0-2); EOSINOPHILS ABSOLUTE AUTO 0.13 K/mm3 (0.00-0.68); EOSINOPHILS PERCENT AUTO 2 % (0-6); Hematocrit 39.4 % (33.0-51.0); Hemoglobin 12.9 g/dL (11.5-16.0); IMMATURE GRAN ABSOLUTE AUTO 0.02 K/mm3 (0.00-0.10); IMMATURE GRAN PERCENT AUTO 0 % (0-1); LYMPHOCYTES ABSOLUTE AUTO 1.37 K/mm3 (0.84-5.20); LYMPHOCYTES PERCENT AUTO 20 % (21-46); MONOCYTES ABSOLUTE AUTO 0.62 K/mm3 (0.16-1.47); MONOCYTES PERCENT AUTO 9 % (4-13); Mean Corpuscular HGB 30.8 pg (26.0-34.0); Mean Corpuscular HGB Conc 32.7 g/dL (31.5-36.5); Mean Corpuscular Volume 94 fL (80-100); Mean Platelet Volume 13.5 fL (9.1-12.4); NEUTROPHILS ABSOLUTE AUTO 4.79 K/mm3 (1.96-9.15); NEUTROPHILS PERCENT AUTO 69 % (41-73); Platelet Count 172 K/mm3 (150-400); RDW Standard Deviation 41.6 fL (35.1-46.3); Red Blood Cell Count 4.19 M/mm3 (3.80-5.20); White Blood Cell Count 6.96 K/mm3 (4.00-11.30)
[2024-07-05 09:00] LABS: Albumin, Blood 3.3 g/dL (3.4-5.0); Bilirubin, Total 0.4 mg/dL (0.1-1.0); Bun/Creatinine Ratio 19.6 (12.0-20.0); Calcium, Blood 8.7 mg/dL (8.5-10.1); Creatinine, Blood 1.63 mg/dL (0.40-1.00); Globulin, Blood 3.2 g/dL (2.2-4.0); Potassium, Blood 4.5 mmol/L (3.5-5.5); Total Protein, Blood 6.5 g/dL (6.4-8.2)
[2024-07-05] MEDS ORDERED: Aspirin 81 MG Chew PO SCH (09:00)
[2024-07-05] MEDS ORDERED: Clopidogrel Bisulfate 75 MG Tab PO SCH (09:00)
--- NOTE | 2024-07-05 10:12 | NUR ---
ORTHOSTATIC VITAL SIGNS: PER CARDIOLOGY REQUEST, ORTHOSTATIC VITAL SIGNS COMPLETED BY THIS RN. LYIN/63, HR 62 SITTIN/64, HR 69 STANDIN/70, HR 67
--- NOTE | 2024-07-05 10:23 | NUR ---
AM NOTE: THIS RN ASSUMED CARE OF PT AT APPROX 0700, REPORT FROM JANEL ARELLANO. PT A/OX4, ABLE TO COMMUNICATE NEEDS. VSS. HR 60-70'S, SINUS RHYTHM ON TELE. BP STABLE. ORTHOSTATIC VITAL SIGNS COMPLETED PER MD REQUEST. SPO2 >90% ON ROOM AIR WHILE AWAKE. R RADIAL SITE IS FULLY RECOVERED, C/D/I. NO BLEEDING, BRUISING, OR HEMATOMA FORMATION. RADIAL PULSE STRONG. SENSATION INTACT DISTAL TO SITE. FINGERS WARM, PT DENIES NUMBNESS/TINGLING. CAP REFILL <3SEC. PT DENIES CHEST PAIN/PRESSURE/PALPITATIONS. DENIES DIZZINESS ON STANDING. PT TOLERATING PO INTAKE WELL THIS MORNING. NO OTHER NEEDS AT THIS TIME, CALL LIGHT IN REACH.
[2024-07-05 11:16] VITALS: BP 112/64
[2024-07-05] MEDS ORDERED: METO25 PO (12:53)
[2024-07-05] MEDS ORDERED: ELIQUIS2.5 MG PO (12:55)
[2024-07-05] MEDS ORDERED: Crestor40 MG PO (12:56)
--- NOTE | 2024-07-05 14:26 | NUR ---
DISCHARGE NOTE: PT WAS DISCHARGED FROM PCU AT APPROX 1410. PT A/OX4, VSS AT TIME OF DISCHARGE. HR 60'S, SINUS RHYTHM ON TELE. SBP 100-110'S, DENIES CHEST PAIN/PRESSURE/PALPITATIONS. SPO2 >95% ON ROOM AIR. PT ABLE TO DRESS SELF INDEPENDENTLY FOR DISCHARGE. IV CATHETERS REMOVED W/O DIFFICULTY. ALL MEDICATIONS AND DISCHARGE INSTRUCTIONS REVIEWED W/ PT. F/U APPTS MADE. PT WHEELED TO PRIVATE VEHICLE, FRIEND TO DRIVE PT HOME.
== END 2024-07-05 14:07 | disposition home or self-care (01) | DRG 322 ==
LOC: ER 18:08 → PCU 18:09
PROVIDERS: Nurse Practitioner Acute Care; Student in an Organized Health Care Education/Training Program; ADMIT Internal Medicine
PROC: 027034Z Dilation of Coronary Artery, One Artery with Drug-eluting Intraluminal Device, Percutaneous Approach (ICD-10-PCS; principal; 2024-07-04)
PROC: B2111ZZ Fluoroscopy of Multiple Coronary Arteries using Low Osmolar Contrast (ICD-10-PCS; 2024-07-04)
PROC: 4A023N7 Measurement of Cardiac Sampling and Pressure, Left Heart, Percutaneous Approach (ICD-10-PCS; 2024-07-04)
DX: I21.4 Non-ST elevation (NSTEMI) myocardial infarction (principal); I48.91 Unspecified atrial fibrillation; E03.9 Hypothyroidism, unspecified; Z98.890 Other specified postprocedural states; D72.829 Elevated white blood cell count, unspecified; E78.5 Hyperlipidemia, unspecified; N18.32 Chronic kidney disease, stage 3b; M79.7 Fibromyalgia; I12.9 Hypertensive chronic kidney disease with stage 1 through stage 4 chronic kidney disease, or unspecified chronic kidney disease; K59.09 Other constipation; H93.19 Tinnitus, unspecified ear; I73.9 Peripheral vascular disease, unspecified; Z90.722 Acquired absence of ovaries, bilateral; Z90.79 Acquired absence of other genital organ(s); Z90.710 Acquired absence of both cervix and uterus; Z90.13 Acquired absence of bilateral breasts and nipples; H26.9 Unspecified cataract; Z87.891 Personal history of nicotine dependence; Z88.5 Allergy status to narcotic agent; Z79.02 Long term (current) use of antithrombotics/antiplatelets; Z79.899 Other long term (current) drug therapy; Z79.890 Hormone replacement therapy; Z95.5 Presence of coronary angioplasty implant and graft; Z96.653 Presence of artificial knee joint, bilateral
CPT/HCPCS: 36415; 71046; 76937; 80053; 83735; 84443; 84484; 85025; 85347; 85520; 85610; 85730; 93005; 93010; 93246; 93306; 93454; 94760; 94762; 96365; 96366; 96375; 96376; 99152; 99153; 99285-25; A9270; C1725; C1769; C1874; C1887; C1894; C9600; G0378; J1644; J2250; J2405; J3010; J3246; J7030; J7050; Q9967

== ENCOUNTER → 2024-11-29 | Outpatient (CLI) | payer OTHER ==
[~2024-11-29] MED LIST changes: +Crestor40 MG PO; +ELIQUIS2.5 MG PO; +METO25 PO
[2024-11-30 12:07] LABS: BASOPHILS ABSOLUTE AUTO 0.06 K/mm3 (0.00-0.23); BASOPHILS PERCENT AUTO 1 % (0-2); EOSINOPHILS ABSOLUTE AUTO 0.22 K/mm3 (0.00-0.68); EOSINOPHILS PERCENT AUTO 4 % (0-6); Hematocrit 43.5 % (33.0-51.0); Hemoglobin 14.2 g/dL (11.5-16.0); IMMATURE GRAN ABSOLUTE AUTO 0.01 K/mm3 (0.00-0.10); IMMATURE GRAN PERCENT AUTO 0 % (0-1); LYMPHOCYTES ABSOLUTE AUTO 1.06 K/mm3 (0.84-5.20); LYMPHOCYTES PERCENT AUTO 20 % (21-46); MONOCYTES ABSOLUTE AUTO 0.53 K/mm3 (0.16-1.47); MONOCYTES PERCENT AUTO 10 % (4-13); Mean Corpuscular HGB 31.2 pg (26.0-34.0); Mean Corpuscular HGB Conc 32.6 g/dL (31.5-36.5); Mean Corpuscular Volume 96 fL (80-100); Mean Platelet Volume 13.6 fL (9.1-12.4); NEUTROPHILS ABSOLUTE AUTO 3.53 K/mm3 (1.96-9.15); NEUTROPHILS PERCENT AUTO 65 % (41-73); Platelet Count 160 K/mm3 (150-400); RDW Coefficient Variation 12.6 % (11.7-14.2); RDW Standard Deviation 44.4 fL (35.1-46.3); Red Blood Cell Count 4.55 M/mm3 (3.80-5.20); White Blood Cell Count 5.41 K/mm3 (4.00-11.30)
[2024-11-30 13:17] LABS: Free Thyroxine 1.23 ng/dL (0.70-1.60); Thyroid Stimulating Hormone 5.32 uIU/mL (0.360-4.800)
[2024-11-30 13:18] LABS: Albumin, Blood 3.7 g/dL (3.4-5.0); Albumin/Globulin Ratio 1.2 (0.8-1.8); Bilirubin, Total 0.6 mg/dL (0.1-1.0); Bun/Creatinine Ratio 15.7 (12.0-20.0); Calcium, Blood 8.4 mg/dL (8.5-10.1); Creatinine, Blood 1.4 mg/dL (0.40-1.00); Globulin, Blood 3.2 g/dL (2.2-4.0); Percent Saturation 34.5 % (15.0-50.0); Potassium, Blood 4.4 mmol/L (3.5-5.5); Total Protein, Blood 6.9 g/dL (6.4-8.2)
== END | disposition home or self-care (01) ==
LOC: LAB 13:00 → LAB SHORT 13:00
PROVIDERS: Nurse Practitioner Family
DX: R53.83 Other fatigue (principal); Z86.39 Personal history of other endocrine, nutritional and metabolic disease
CPT/HCPCS: 80053; 82607; 82728; 82746; 83540; 83550; 84439; 84443; 85025

== ENCOUNTER 2025-05-12 22:40 | Emergency (ER) | payer OTHER ==
[~2025-05-12] VITALS: Ht 167.6 cm; Wt 81.7 kg
[2025-05-12 22:40] VITALS: BP 210/114
[2025-05-12] MEDS ORDERED: Morphine Sulfate 4 MG/1 ML Injection IV ONE (22:50)
[2025-05-12] MEDS ORDERED: NiCARdipine HCL 50 MG in NS 250 ML IV SCH (23:15)
[2025-05-12] MEDS ORDERED: HUMAN PROTHROMBIN COMPLX IV ONE (23:20)
[2025-05-12] MEDS ORDERED: WATER FOR INJECTION STERILE IV ONE (23:20)
[2025-05-12 23:26] LABS: Prothrombin Time Results 10.5 Sec (9.7-11.5)
[2025-05-12 23:35] LABS: Magnesium, Blood 2.4 mg/dL (1.6-2.4)
[2025-05-12] MEDS ORDERED: Ondansetron HCl 2 MG / ML 2ML Vial IV ONE (23:35)
[2025-05-12 23:36] LABS: Alanine Aminotransfer (ALT/SGP 22.0 U/L (12-78); Albumin, Blood 3.8 g/dL (3.4-5.0); Albumin/Globulin Ratio 1.1 (0.8-1.8); Anion Gap 11.0 mmol/L (3-11); Aspartate Aminotrans (AST/SGOT 33.0 U/L (12-37); Bilirubin, Total 0.6 mg/dL (0.1-1.0); Blood Urea Nitrogen 29.0 mg/dL (8-24); CO2, Blood 22.0 mmol/L (21-32); Calcium, Blood 9.2 mg/dL (8.5-10.1); Chloride, Blood 106.0 mmol/L (98-108); Creatinine, Blood 1.63 mg/dL (0.40-1.00); Globulin, Blood 3.4 g/dL (2.2-4.0); Glucose, Blood 134.0 mg/dL (70-99); Potassium, Blood 4.2 mmol/L (3.5-5.5); Sodium, Blood 135.0 mmol/L (136-145); Total Protein, Blood 7.2 g/dL (6.4-8.2)
[2025-05-12] MEDS ORDERED: Ondansetron HCl 2 MG / ML 2ML Vial ONE (23:38)
[2025-05-12] MEDS ORDERED: Labetalol HCL 5 MG/ML 4ML Injection (Single Dose) ONE (23:38)
[2025-05-12 23:42] LABS: BASOPHILS ABSOLUTE AUTO 0.04 K/mm3 (0.00-0.23); BASOPHILS PERCENT AUTO 0 % (0-2); EOSINOPHILS ABSOLUTE AUTO 0.12 K/mm3 (0.00-0.68); EOSINOPHILS PERCENT AUTO 1 % (0-6); Hematocrit 45.8 % (33.0-51.0); Hemoglobin 15.0 g/dL (11.5-16.0); IMMATURE GRAN ABSOLUTE AUTO 0.07 K/mm3 (0.00-0.10); IMMATURE GRAN PERCENT AUTO 1 % (0-1); LYMPHOCYTES ABSOLUTE AUTO 1.11 K/mm3 (0.84-5.20); LYMPHOCYTES PERCENT AUTO 8 % (21-46); MONOCYTES ABSOLUTE AUTO 0.78 K/mm3 (0.16-1.47); MONOCYTES PERCENT AUTO 6 % (4-13); Mean Corpuscular HGB Conc 32.8 g/dL (31.5-36.5); Mean Corpuscular Volume 93 fL (80-100); NEUTROPHILS ABSOLUTE AUTO 11.31 K/mm3 (1.96-9.15); NEUTROPHILS PERCENT AUTO 84 % (41-73); NRBC ABSOLUTE 0.00 K/mm3 (0.00-0.02); NRBC Auto 0.0 /100 WBC (0.0-0.2); Platelet Count 165 K/mm3 (150-400); RDW Coefficient Variation 12.3 % (11.7-14.2); RDW Standard Deviation 42.3 fL (35.1-46.3)
[2025-05-12] MEDS ORDERED: Diazepam 5 MG / ML 2ML SYR IV ONE (23:55)
[2025-05-13] MEDS ORDERED: PROTHROMBIN COMPLEX CONCENTRATE IV SCH (00:25)
[2025-05-13] MEDS ORDERED: NS IV ONE (00:35)
[2025-05-13] MEDS ORDERED: LEVETIRACETAM IV ONE (00:35)
[2025-05-13] MEDS ORDERED: Diazepam 5 MG / ML 2ML SYR IV ONE (00:50)
[2025-05-13] MEDS ORDERED: Labetalol HCL 5 MG/ML 4ML Injection (Single Dose) IV ONE (00:55)
== END 2025-05-13 01:23 | disposition short-term general hospital (02) ==
LOC: ER 22:40
PROVIDERS: Student in an Organized Health Care Education/Training Program
DX: S06.5XAA Traumatic subdural hemorrhage with loss of consciousness status unknown, initial encounter (principal); G93.40 Encephalopathy, unspecified; S51.011A Laceration without foreign body of right elbow, initial encounter; Z79.01 Long term (current) use of anticoagulants; W18.30XA Fall on same level, unspecified, initial encounter; Z88.8 Allergy status to other drugs, medicaments and biological substances; Z79.2 Long term (current) use of antibiotics; Z79.899 Other long term (current) drug therapy; G47.33 Obstructive sleep apnea (adult) (pediatric); I12.0 Hypertensive chronic kidney disease with stage 5 chronic kidney disease or end stage renal disease; N18.30 Chronic kidney disease, stage 3 unspecified; E78.5 Hyperlipidemia, unspecified; Z87.891 Personal history of nicotine dependence
CPT/HCPCS: 70450; 72125; 80053; 83690; 83735; 84484; 85025; 85610; 85730; 86850; 86900; 86901; 93005; 93010; 96365; 96375; 96376; 99285-25; J1953; J2270; J2405; J3360; J7050; J7168

== ENCOUNTER 2025-06-16 21:14 | Inpatient (IN) | payer OTHER ==
[~2025-06-16] VITALS: Ht 167.6 cm; Wt 67.5 kg
[~2025-06-16 21:14] MED LIST changes: -BACLOFEN10 M4 PO; -ELIQUIS2.5 MG PO; +EUTHYROX125 MCG PO; -LEVOTHYROXINE112 M18 PO
[2025-06-16 21:46] LABS: Hematocrit 48.9 % (33.0-51.0); Hemoglobin 15.8 g/dL (11.5-16.0); Mean Corpuscular HGB Conc 32.3 g/dL (31.5-36.5); Mean Corpuscular Volume 97 fL (80-100); Platelet Count 229 K/mm3 (150-400); RDW Coefficient Variation 13.8 % (11.7-14.2); RDW Standard Deviation 49.1 fL (35.1-46.3)
[2025-06-16 21:48] LABS: BASOPHILS ABSOLUTE AUTO 0.06 K/mm3 (0.00-0.23); BASOPHILS PERCENT AUTO 0 % (0-2); EOSINOPHILS ABSOLUTE AUTO 0.02 K/mm3 (0.00-0.68); EOSINOPHILS PERCENT AUTO 0 % (0-6); IMMATURE GRAN ABSOLUTE AUTO 0.07 K/mm3 (0.00-0.10); IMMATURE GRAN PERCENT AUTO 1 % (0-1); LYMPHOCYTES ABSOLUTE AUTO 1.08 K/mm3 (0.84-5.20); LYMPHOCYTES PERCENT AUTO 7 % (21-46); MONOCYTES ABSOLUTE AUTO 0.66 K/mm3 (0.16-1.47); MONOCYTES PERCENT AUTO 4 % (4-13); NEUTROPHILS ABSOLUTE AUTO 13.12 K/mm3 (1.96-9.15); NEUTROPHILS PERCENT AUTO 87 % (41-73); NRBC ABSOLUTE 0.02 K/mm3 (0.00-0.02); NRBC Auto 0.1 /100 WBC (0.0-0.2)
[2025-06-16] MEDS ORDERED: Metoprolol Tartrate 1 MG/ML 5 ML VIAL IV ONE (21:50)
[2025-06-16] MEDS ORDERED: LORazepam 2 MG/ML 1ML Injection IV ONE (21:55)
[2025-06-16 22:02] LABS: Alanine Aminotransfer (ALT/SGP 20.0 U/L (12-78); Albumin, Blood 4.3 g/dL (3.4-5.0); Albumin/Globulin Ratio 1.0 (0.8-1.8); Anion Gap 13.0 mmol/L (3-11); Aspartate Aminotrans (AST/SGOT 30.0 U/L (12-37); Bilirubin, Total 0.7 mg/dL (0.1-1.0); Blood Urea Nitrogen 18.0 mg/dL (8-24); CO2, Blood 19.0 mmol/L (21-32); Calcium, Blood 10.4 mg/dL (8.5-10.1); Chloride, Blood 110.0 mmol/L (98-108); Creatinine, Blood 1.68 mg/dL (0.40-1.00); Globulin, Blood 4.1 g/dL (2.2-4.0); Glucose, Blood 134.0 mg/dL (70-99); Potassium, Blood 4.1 mmol/L (3.5-5.5); Sodium, Blood 138.0 mmol/L (136-145); Total Protein, Blood 8.4 g/dL (6.4-8.2)
[2025-06-16 22:46] LABS: Source, Urine Clean Catch
[2025-06-16 22:51] LABS: Bilirubin, Urine Neg (Neg); Glucose Qualitative, Urine Neg (Neg); Ketones, Urine Neg (Neg); Leukocyte Esterase, Urine 1+ (Neg); Protein, Urine 2+ (Neg); Specific Gravity, Urine 1.010 (1.003-1.022); Urobilinogen, Urine NORM (Normal)
[2025-06-16 23:03] LABS: U Amphetamine Screen Not Detected; U Barbiturate Screen Not Detected; U Benzodiazapine Screen Not Detected; U Buprenorphine Screen Not Detected; U Cannabinoids Screen Not Detected; U Cocaine Screen Not Detected; U Methadone Screen Not Detected; U Methamphetamine Screen Not Detected; U Opiates Screen Not Detected; U Oxycodone Screen Not Detected; U Phencyclidine Screen Not Detected
[2025-06-16 23:04] LABS: Color, Urine Yellow (P-Yellow)
[2025-06-16 23:05] LABS: Red Blood Cells, Urine 0-2 /hpf (0-2)
[2025-06-16] MEDS ORDERED: CefTRIAXone Sodium 1,000 MG in NS 100 ML IV ONE (23:15)
[2025-06-16] MEDS ORDERED: FLU VACC TS2025(65UP)/MF59C/PF 45 MCG/0.5 ML SYRINGE IM SCH (23:45)
[2025-06-16] MEDS ORDERED: Sodium Bicarb 8.4% 1 MEQ/ML 50 ML Vial IV ONE (23:45)
[2025-06-16] MEDS ORDERED: Ondansetron HCl 2 MG / ML 2ML Vial IV PRN (23:50)
[2025-06-16] MEDS ORDERED: NS 1,000 ML IV SCH (23:50)
[2025-06-17] VITALS (13 sets, daily range): BP systolic 105–185; BP diastolic 65–116
[2025-06-17] MEDS ORDERED: HydrALAZINE HCl 20 MG / ML 1ML Vial IV ONE (01:20)
[2025-06-17 01:23] LABS: Thyroid Stimulating Hormone 1.55 uIU/mL (0.360-4.800)
[2025-06-17] MEDS ORDERED: HydrALAZINE HCl 20 MG / ML 1ML Vial IV PRN ×3 (03:55→08:35)
[2025-06-17] MEDS ORDERED: NS 1,000 ML IV SCH (06:25)
--- NOTE | 2025-06-17 06:43 | NUR ---
PT ARRIVED TO FLOOR FROM ED VIA STRETCHER. PT WAS IN FOUR POINT SOFT RESTRAINTS D/T CONFUSED, COMBATIVE, AND AGGRESSIVE BEHAVIOR. PT IS ALERT AND ORIENTED TO SELF. PT IS FIXATED ON "SOMEONE KILLING HER DOGS". PT IS VERY ANGRY AND AGGRESSIVE VERBALLY. BP IS ELEVATED. RESTRAINTS IN PLACE D/T CONTINUED BEHAVIOR AND PULLING AT LINES. IV FLUIDS INFUSING PER ORDER. PT ABLE TO USE BEDPAN TO VOID. RANGE OF MOTION PERFORMED. NO INJURIES NOTED. PT NOT COMPLAINT FOR AN ACCURATE ASSESSMENT. BED LOCKED IN LOWEST POSITION. CALL LIGHT WITHIN REACH. FREQUENT CHECKS ON PT.
[2025-06-17 08:25] LABS: BASOPHILS ABSOLUTE AUTO 0.07 K/mm3 (0.00-0.23); BASOPHILS PERCENT AUTO 1 % (0-2); EOSINOPHILS ABSOLUTE AUTO 0.05 K/mm3 (0.00-0.68); EOSINOPHILS PERCENT AUTO 0 % (0-6); Hematocrit 46.6 % (33.0-51.0); Hemoglobin 15.9 g/dL (11.5-16.0); IMMATURE GRAN ABSOLUTE AUTO 0.05 K/mm3 (0.00-0.10); IMMATURE GRAN PERCENT AUTO 0 % (0-1); LYMPHOCYTES ABSOLUTE AUTO 3.19 K/mm3 (0.84-5.20); LYMPHOCYTES PERCENT AUTO 21 % (21-46); MONOCYTES ABSOLUTE AUTO 1.31 K/mm3 (0.16-1.47); MONOCYTES PERCENT AUTO 9 % (4-13); Mean Corpuscular HGB Conc 34.1 g/dL (31.5-36.5); Mean Corpuscular Volume 93 fL (80-100); NEUTROPHILS ABSOLUTE AUTO 10.71 K/mm3 (1.96-9.15); NEUTROPHILS PERCENT AUTO 70 % (41-73); NRBC ABSOLUTE 0.00 K/mm3 (0.00-0.02); NRBC Auto 0.0 /100 WBC (0.0-0.2); Platelet Count 230 K/mm3 (150-400); RDW Coefficient Variation 13.7 % (11.7-14.2); RDW Standard Deviation 47.0 fL (35.1-46.3)
[2025-06-17] MEDS ORDERED: LEVETIRACETAM50014 PO (08:28)
[2025-06-17 08:51] LABS: Alanine Aminotransfer (ALT/SGP 17.0 U/L (12-78); Albumin, Blood 4.1 g/dL (3.4-5.0); Albumin/Globulin Ratio 1.1 (0.8-1.8); Anion Gap 13.0 mmol/L (3-11); Aspartate Aminotrans (AST/SGOT 21.0 U/L (12-37); Bilirubin, Total 0.6 mg/dL (0.1-1.0); Blood Urea Nitrogen 15.0 mg/dL (8-24); CO2, Blood 23.0 mmol/L (21-32); Calcium, Blood 10.0 mg/dL (8.5-10.1); Chloride, Blood 109.0 mmol/L (98-108); Creatinine, Blood 1.29 mg/dL (0.40-1.00); Globulin, Blood 3.7 g/dL (2.2-4.0); Glucose, Blood 113.0 mg/dL (70-99); Potassium, Blood 2.9 mmol/L (3.5-5.5); Sodium, Blood 142.0 mmol/L (136-145); Total Protein, Blood 7.8 g/dL (6.4-8.2)
[2025-06-17] MEDS ORDERED: Metoprolol Tartrate 1 MG/ML 5 ML VIAL IV SCH (09:00)
[2025-06-17] MEDS ORDERED: FLUT1DIS5 INH (11:10)
--- NOTE | 2025-06-17 12:00 | NUR ---
MORNING NOTE: THE PT IS A&OX2, VERY IRRITABLE, AND CONFUSED. SHE STARTED THE SHIFT BY HITTING AND KICKING THIS RN EVEN WHILE SHE WAS IN FOUR POINT RESTRAINTS. AT 1200 SHE WAS DOWN GRADED FROM FOUR POINT RESTRAINTS TO BILATERAL UPPER SOFT WRIST RESTRAINTS. ORDER UPDATED. THE PT SHOWS UNDERSTANDING THAT NOT HITTING AND KICKING , PULLING AT LINES, AND GETTING OOB ON HER WILL HELP GET HER OUT OF RESTRAINTS. THE PT'S POA AND ESDRAS ESTRADA HAS BEEN AT BED SIDE AND UPDATED ON CARE. ESTRADA IS GOING TO BRING IN POA PAPERWORK. ON TELE THE PT HAS BEEN SR/ST 90'S-130'S. HYPERTENSION WAS NOTED. LOPRESSOR AND HYDRALIZINE GIVEN PER EMAR. THE PT HAD A TWINGE OF DISCOMFORT UNDER HER LEFT BREAST THIS MORNING. SHARP, NON RADIATING. DR. DELEON AWARE, TROPONINS ORDERED. THE PT HAS BEEN C/O BURNING WHEN URINATING. SMALL AMOUNTS OF URINE NOTED WHEN THE PT IS VOIDING ON THE BED [place]. SEE I&O'S. SP02 >93% ON RA. BED IN LOW, CALL LIGHT IN REACH, AND ESTRADA REMAINS AT BEDSID. SEE NOTES FOR UPDATES.
--- NOTE | 2025-06-17 14:56 | NUR ---
BLADDER SCAN/STRAIGHTCATH/PERINEAL FINDS" THE PT WAS COMPLAINING OF INTENSE PRESSURE "DOWN THERE". WHEN THE PT WAS ASKED TO POINT TO THE PAIN SHE POINTED TO HER BLADDER. THIS RN BLADDER SCANNED THE PT AND >896 WAS SAW ON THE SCAN. THIS RN CALLED DR. DELEON AND AT THE TIME DR. DELEON JUST WANTED A STRAIGHT CATH DONE. 950ML OR URINE OUT. INSERTION WAS DIFFICULT AND LUMPS AND NODULES WERE NOTED AROUND THE VAGINAL CANAL AND URETHRA. PLAY LEADER YOJANA MADE AWARE AND HAD TO ASSIST WITH STRAIGHT CATH D/T ANATOMY. THIS RN CALLED DR. DELEON WITH CONCERNS FOR THE LUMPS FOUND IN THE PERINEAL AREA. DR. DELEON STATED SHE WILL COME ASSESS THE CONCERNS BEFORE SHE ORDERS ANYTHING. AWAITING PROVIDER AT THIS TIME. SEE NOTES FOR UPDATES.
[2025-06-17] MEDS ORDERED: HYDROcodone 5-APAP 325 TAB PO PRN (18:20)
[2025-06-17] MEDS ORDERED: Albuterol HFA200 ACT/6.7 GM INH INH PRN (18:30)
[2025-06-17] MEDS ORDERED: Formoterol/Mometasone MDI 5/200 mcg 13 GM INH SCH (18:35)
--- NOTE | 2025-06-17 18:38 | NUR ---
END OF SHIFT UPDATES: RESTRAINTS HAVE BEEN D/C'D AND A 1:1 CLINICAL SITTER IS AT BEDSIDE. THE PT HAS NOT BEEN HITTING OR KICKING THIS SINCE ASSUMPTION OF CARE. FEMALE NURSES AND HEAD END DESIZING MACHINE OPERATOR'S HAVE BEEN PROVIDING CARE AND HAVE BEEN REQUESTED FOR WELT TRIMMING MACHINE OPERATOR. THE PT'S POA ESTRADA HAS BEEN UPDATED ON CHANGED AND RESTRAINTS HAVE BEEN COMPLETED FROM CARE PLAN. DR. DELEON CAME TO EVALUATE THE PT'S PERINEAL AREA (SEE PREVIOUSE NOTE). STEVEN CATH ORDERED AT THIS TIME FOR RETENTION. 14FR PLACED WITH STERILE TECHNIQUE PER PROTOCOL. DR. DELEON WOULD LIKE THE PT TO FOLLOW UP WITH AN OBGYN OUTPT. THIS WAS DISCUSSED WITH ESTRADA PT'S POA WHO HELPS WITH MEDICAL MANAGEMENT. SEE NOTES FOR UPDATES
[2025-06-17] MEDS ORDERED: CefTRIAXone Sodium 1,000 MG in NS 100 ML IV SCH (21:00)
--- NOTE | 2025-06-17 21:53 | NUR ---
PROVIDER COMMUNICATION: PROVIDER NOTIFED D/T PT REPORTING SHE IS HAVING VISUAL AND AUDITORY HALLUCINATIONS. SHE REPORTS THE BLANKET ON HER HAS FISH AND IT IS KEEPING HER SAFE FROM THEM. SHE ALSO REPORTS SHE HEARS VOICES SAYING TO "KILL THEM" OUTSIDE THE ROOM. WHEN ASKED IF THE VOICES ARE TELLING HER TO HURT HERSELF OR OTHERS. PT RESPONDED WITH "IF YOU KILL ME AND THEY PROVE TO ME THAT YOU DID, THEN I WILL HURT YOU." SHE HAS FLIGHT OF IDEAS WHEN COMMUNICATING. PROVIDER ORDERED SEROQUEL 25MG PO NOW. SITTER SITTING CLOSE TO DOOR FOR SAFETY AND ROOM CLEARED FOR SAFETY.
[2025-06-18 04:21] VITALS: BP 137/95
[2025-06-18 04:44] LABS: Hematocrit 42.0 % (33.0-51.0); Hemoglobin 13.8 g/dL (11.5-16.0); Mean Corpuscular HGB Conc 32.9 g/dL (31.5-36.5); Mean Corpuscular Volume 95 fL (80-100); NRBC ABSOLUTE 0.00 K/mm3 (0.00-0.02); NRBC Auto 0.0 /100 WBC (0.0-0.2); Platelet Count 194 K/mm3 (150-400); RDW Coefficient Variation 14.2 % (11.7-14.2); RDW Standard Deviation 49.4 fL (35.1-46.3)
[2025-06-18 05:22] LABS: Anion Gap 11.0 mmol/L (3-11); Blood Urea Nitrogen 16.0 mg/dL (8-24); CO2, Blood 22.0 mmol/L (21-32); Calcium, Blood 9.7 mg/dL (8.5-10.1); Chloride, Blood 109.0 mmol/L (98-108); Creatinine, Blood 1.53 mg/dL (0.40-1.00); Glucose, Blood 107.0 mg/dL (70-99); Potassium, Blood 3.6 mmol/L (3.5-5.5); Sodium, Blood 138.0 mmol/L (136-145)
--- NOTE | 2025-06-18 06:29 | NUR ---
SHIFT SUMMARY: PT A&OX2 TO SELF AND PLACE ONLY. SHE IS ANXIOUS WITH FLIGHT OF IDEAS. SKAGWAY VSS ON RA. PT CONTINUES TO REPORTS VISUAL AND AUDITORY HALLUCINATION. PROVIDER NOTIFIED. SEE PREVIOUS NOTE. PT REMAINED BEDREST D/T AMS. STEVEN IN PLACE DRAINING TO GRAVITY. 1:1 SITTER IN ROOM. FEMALE STAFF ONLY. CONTINUE IV ABX. PT IS TO F/U WITH OBGYN OUTPATIENT. SEE PREVIOUS SHIFT NOTES. BED IS LOW AND LOCKED. BED ALARM ON AND CALL LIGHT WITHIN REACH. CONTINUE WITH CURRENT PLAN OF CARE.
[2025-06-18 07:40] VITALS: BP 113/69
[2025-06-18] MEDS ORDERED: SALICYLIC ACID TOP SCH (08:40)
[2025-06-18] MEDS ORDERED: Piperacillin/Tazobactam Sod 3.375 GM in NS 100 ML IV SCH (09:00)
[2025-06-18 12:53] VITALS: BP 124/66
[2025-06-18] MEDS ORDERED: NS 250 ML IV PRN (13:05)
--- NOTE | 2025-06-18 13:06 | NUR ---
AM NOTES/TRANSFER; PT HAD A SITTER THIS MORNING NOT UNTIL AFTER BREAKFAST. PT STILL HAS SOME CONFUSION AND HALLUCINATION. PT HAS BEEN REDIRACTABLE AND NOT TRYING TO GET OUT OF BED OR BEING COMBATIVE. PT ABLE TO AMBULATE VIA WALKER OUTSIDE IN THE HALLWAY WITH THE SITTER PT TOLERATED WELL. PT STEVEN REMAINED INTACT IN PLACE URINE VERY CLOUDY WITH SOME SEDIMENTS. VITALS HAS BEEN STABLE. PT DENIES ANY PAIN. TOLERATED MEALS FOR THE DAY. TRANSITIONED TO MED WITH TELE. REPORT GIVEN TO LESLIE ARELLANO ALL BELONGINGS SENT WITH THE PT, ACCOMPANIED VIA WHEELCHAIR FOR TRANSPORT
[2025-06-18 15:08] VITALS: BP 102/63
--- NOTE | 2025-06-18 19:33 | NUR ---
SUMMARY TRANSFER FROM PCU 18, STEVEN PRESENT DRAINING TO GRAVITY LIGHT BROWN CLOUDY URINE. IV ANTIBIOTICS INFUSING ON TRANSFER. PT A/0X3, COULD NOT TELL ME SITUATION. FORGETFUL AND PARANOID. NO VISUALIZED HALLUCINATIONS THIS SHIFT. TELEMETRY SINUS RYTHM/TACHY LOW 100'S. UP TO BSC FOR BM, PT HAS BEEN PASSING GAS BUT NO BM DOCUMENTED, FORGOT TO MENTION TO PHSYICIAN TODAY ABOUT STARTING POSSIBLE BOWEL REGIMEN FOR PATIENT. MOD ABD DISTENTION BUT SOFT NONTENDER, HYPERACTIVE BOWEL SOUNDS. PER PATIENT SHE HAS HAD CHRONIC DOUBLE VISION FOR A COUPLE YEARS AND HER HEARING HAS ALSO BEEN DECLINING OVER THE YEARS. PRN NORCO AVAILABLE BUT PT DENIED NEED THIS SHIFT.
[2025-06-18 19:49] VITALS: BP 125/76
--- NOTE | 2025-06-18 20:59 | NUR ---
NEW T-ORDER RECEIVED FROM THE ON-CALL HOSPITALIST JAYE: AMBIEN PO 5MG QHS. ENTERED TO [employer], SEE EMAR.
[2025-06-19 04:48] VITALS: BP 121/76
[2025-06-19 04:56] LABS: BASOPHILS ABSOLUTE AUTO 0.07 K/mm3 (0.00-0.23); BASOPHILS PERCENT AUTO 1 % (0-2); EOSINOPHILS ABSOLUTE AUTO 0.31 K/mm3 (0.00-0.68); EOSINOPHILS PERCENT AUTO 3 % (0-6); Hematocrit 38.1 % (33.0-51.0); Hemoglobin 12.7 g/dL (11.5-16.0); IMMATURE GRAN ABSOLUTE AUTO 0.03 K/mm3 (0.00-0.10); IMMATURE GRAN PERCENT AUTO 0 % (0-1); LYMPHOCYTES ABSOLUTE AUTO 2.03 K/mm3 (0.84-5.20); LYMPHOCYTES PERCENT AUTO 22 % (21-46); MONOCYTES ABSOLUTE AUTO 0.74 K/mm3 (0.16-1.47); MONOCYTES PERCENT AUTO 8 % (4-13); Mean Corpuscular HGB Conc 33.3 g/dL (31.5-36.5); Mean Corpuscular Volume 95 fL (80-100); NEUTROPHILS ABSOLUTE AUTO 6.25 K/mm3 (1.96-9.15); NEUTROPHILS PERCENT AUTO 66 % (41-73); NRBC ABSOLUTE 0.00 K/mm3 (0.00-0.02); NRBC Auto 0.0 /100 WBC (0.0-0.2); Platelet Count 178 K/mm3 (150-400); RDW Coefficient Variation 14.1 % (11.7-14.2); RDW Standard Deviation 49.2 fL (35.1-46.3)
[2025-06-19 05:21] LABS: Anion Gap 10.0 mmol/L (3-11); Blood Urea Nitrogen 20.0 mg/dL (8-24); CO2, Blood 22.0 mmol/L (21-32); Calcium, Blood 8.9 mg/dL (8.5-10.1); Chloride, Blood 111.0 mmol/L (98-108); Creatinine, Blood 1.67 mg/dL (0.40-1.00); Glucose, Blood 108.0 mg/dL (70-99); Potassium, Blood 3.7 mmol/L (3.5-5.5); Sodium, Blood 139.0 mmol/L (136-145)
[2025-06-19 07:41] VITALS: BP 109/59
[2025-06-19] MEDS ORDERED: BACLOFEN10 M4 PO (10:38)
[2025-06-19] MEDS ORDERED: ZOLP5 PO (10:38)
[2025-06-19] MEDS ORDERED: ELIQUIS2.5 MG PO (10:39)
[2025-06-19 12:41] VITALS: BP 115/78
[2025-06-19 16:09] VITALS: BP 120/69
--- NOTE | 2025-06-19 18:35 | NUR ---
PT IS A/OX4. PT HAD HALLUCINATIONS THIS MORNING BELIEVING A SPIDER WAS CRAWLING ON HER. DENIES HAVING HALLUCINATIONS SINCE. DENIED PAIN THIS SHIFT. STEVEN IN PLACE FOR RETENTION WAS DC'd TODAY. CONT ON IV ABX.
[2025-06-19 20:11] VITALS: BP 118/70
[2025-06-19 23:30] VITALS: BP 131/56
--- NOTE | 2025-06-20 04:12 | NUR ---
SHIFT SUMMARY PATIENT HAD NO ACUTE CHANGES. AXOX 3 WITH NONSENSICAL COMMUNICATION AT TIMES. VOIDING AFTER STEVEN DC ON DAY SHIFT. DENIES CHEST PAIN, SOB, AND N/V. VSS/AFEBRILE. REPORTED INSOMNIA AND PAIN FROM FIBROMYALGIA . NORCO AND MELATONIN 5 MG GIVEN PER EMAR. PIV INTACT. IV ABX INFUSED. CALL LIGHT IN REACH. BED IN LOWEST POSITION AND ALARM ON. WILL CONTINUE TO MONITOR UNTIL DAY SHIFT NURSE ASSUMES CARE.
[2025-06-20 04:40] VITALS: BP 130/59
[2025-06-20 05:18] LABS: BASOPHILS ABSOLUTE AUTO 0.04 K/mm3 (0.00-0.23); BASOPHILS PERCENT AUTO 1 % (0-2); EOSINOPHILS ABSOLUTE AUTO 0.34 K/mm3 (0.00-0.68); EOSINOPHILS PERCENT AUTO 4 % (0-6); Hematocrit 36.5 % (33.0-51.0); Hemoglobin 11.5 g/dL (11.5-16.0); IMMATURE GRAN ABSOLUTE AUTO 0.02 K/mm3 (0.00-0.10); IMMATURE GRAN PERCENT AUTO 0 % (0-1); LYMPHOCYTES ABSOLUTE AUTO 1.75 K/mm3 (0.84-5.20); LYMPHOCYTES PERCENT AUTO 22 % (21-46); MONOCYTES ABSOLUTE AUTO 0.61 K/mm3 (0.16-1.47); MONOCYTES PERCENT AUTO 8 % (4-13); Mean Corpuscular HGB Conc 31.5 g/dL (31.5-36.5); Mean Corpuscular Volume 98 fL (80-100); NEUTROPHILS ABSOLUTE AUTO 5.17 K/mm3 (1.96-9.15); NEUTROPHILS PERCENT AUTO 65 % (41-73); NRBC ABSOLUTE 0.00 K/mm3 (0.00-0.02); NRBC Auto 0.0 /100 WBC (0.0-0.2); Platelet Count 154 K/mm3 (150-400); RDW Coefficient Variation 14.1 % (11.7-14.2); RDW Standard Deviation 51.6 fL (35.1-46.3)
[2025-06-20 05:53] LABS: Anion Gap 10.0 mmol/L (3-11); Blood Urea Nitrogen 22.0 mg/dL (8-24); CO2, Blood 22.0 mmol/L (21-32); Calcium, Blood 8.9 mg/dL (8.5-10.1); Chloride, Blood 110.0 mmol/L (98-108); Creatinine, Blood 1.66 mg/dL (0.40-1.00); Glucose, Blood 133.0 mg/dL (70-99); Potassium, Blood 3.5 mmol/L (3.5-5.5); Sodium, Blood 138.0 mmol/L (136-145)
[2025-06-20 07:08] VITALS: BP 133/82
[2025-06-20] MEDS ORDERED: dilTIAZem HCL 90 MG CAP.ER.12H PO SCH (09:00)
[2025-06-20] MEDS ORDERED: Ampicillin Sod 2,000 MG in NS 100 ML IV SCH (11:10)
[2025-06-20] MEDS ORDERED: Piperacillin/Tazobactam Sod 2.25 GM in NS 50 ML IV SCH (12:00)
[2025-06-20 15:32] VITALS: BP 141/82
--- NOTE | 2025-06-20 16:38 | NUR ---
NO ACUTE CHANGES THIS SHIFT. PT IS ORIENTED WITH INTERMITTENT NONSENSICAL CONVERSATION. PT REPORTS DOG WAS KILLED BY FISHING HAND AND FIREMEN. PT FRIEND REPORTS THIS IS NOT TRUE. IV ANTIBIOTICS CONTINUED THIS SHIFT. PT HAS BEEN ABLE TO URINATE AFTER STEVEN REMOVAL YESTERDAY. NO PAIN OR URGENCY REPORTED THIS SHIFT. SBA TO BATHROOM
[2025-06-20] MEDS ORDERED: LORazepam 2 MG/ML 1ML Injection IV ONE (21:05)
[2025-06-20] MEDS ORDERED: LORazepam 2 MG/ML 1ML Injection IV PRN (21:05)
[2025-06-20] MEDS ORDERED: Haloperidol Lactate Inj. 5 MG/ML Injection IV ONE (21:05)
--- NOTE | 2025-06-20 21:47 | NUR ---
PATIENT BECAME VIOLENT RIPPING TELE LEADS AND WIRES OFF. STANDING IN ROOM STABBING IV BAGS, TUBING, AND LINES, PUNCUTURING IV MEDICATION BAGS WITH LARGE HOSPITAL COMB AND LEAKED ON FLOOR. PATIENT VERBALIZED SHE IS TRYING TO SLASH OUR FACES TO MAKE BLEED WITH COMB. CLUTCH ASSEMBLER NOTIFIED AND PRESENT IN ROOM. NEXT CHARGE CALLED SECURITY IN X 2 INTO ROOM. TOTAL OF 7 STAFF PRESENT IN ROOM PLUS SHOP GIRL BJ RN. PATIENT NOT FOLLOWING DIRECTIONS. HOSPITALIST JESSICA RUSSELL NOTIFIED AND ORDERED IV HALDOL 5 MG X ONE, IV ATIVAN 1 MG X ONE AND JOSE DANIEL VEST. SECURITY SECURED PATIENT AND PLACED JOSE DANIEL VEST AND NEXT PLACED IN BED WITH MULTIPLE STAFF ASSIST. IV MEDS HALDOL AND ATIVAN GIVEN PER EMAR. PATIENT COMBATIVE DURING PROCESS. PATIENT IN BED. WCJUDY.
--- NOTE | 2025-06-21 04:08 | NUR ---
SHIFT SUMMARY PATIENT VIOLENT THIS SHIFT AND AGITATED. SEE NOTE. DENIES CHEST PAIN, SOB, AND N/V. REFUSED SOME VITAL SIGNS. PIV INTACT. IV ABX INFUSED. JOSE DANIEL VEST PER ORDER. RESTING IN BED SINCE IV HALDOL AND IV ATIVAN GIVEN. CALL LIGHT IN REACH. BED IN LOWEST POSITION AND ALARM ON. WILL CONTINUE TO MONITOR UNTIL DAY SHIFT NURSE ASSUMES CARE.
[2025-06-21 04:18] VITALS: BP 96/80
--- NOTE | 2025-06-21 05:39 | NUR ---
PATIENT ANXIETY/AGITATION STARTING AGAIN. IV ATIVAN 1 MG GIVEN OER EMAR. WCTM.
[2025-06-21 06:06] LABS: BASOPHILS ABSOLUTE AUTO 0.03 K/mm3 (0.00-0.23); BASOPHILS PERCENT AUTO 0 % (0-2); EOSINOPHILS ABSOLUTE AUTO 0.19 K/mm3 (0.00-0.68); EOSINOPHILS PERCENT AUTO 3 % (0-6); Hematocrit 35.7 % (33.0-51.0); Hemoglobin 11.5 g/dL (11.5-16.0); IMMATURE GRAN ABSOLUTE AUTO 0.02 K/mm3 (0.00-0.10); IMMATURE GRAN PERCENT AUTO 0 % (0-1); LYMPHOCYTES ABSOLUTE AUTO 1.37 K/mm3 (0.84-5.20); LYMPHOCYTES PERCENT AUTO 19 % (21-46); MONOCYTES ABSOLUTE AUTO 0.53 K/mm3 (0.16-1.47); MONOCYTES PERCENT AUTO 8 % (4-13); Mean Corpuscular HGB Conc 32.2 g/dL (31.5-36.5); Mean Corpuscular Volume 99 fL (80-100); NEUTROPHILS ABSOLUTE AUTO 4.94 K/mm3 (1.96-9.15); NEUTROPHILS PERCENT AUTO 70 % (41-73); NRBC ABSOLUTE 0.00 K/mm3 (0.00-0.02); NRBC Auto 0.0 /100 WBC (0.0-0.2); Platelet Count 141 K/mm3 (150-400); RDW Coefficient Variation 14.1 % (11.7-14.2); RDW Standard Deviation 51.6 fL (35.1-46.3)
[2025-06-21 06:26] LABS: Anion Gap 8.0 mmol/L (3-11); Blood Urea Nitrogen 21.0 mg/dL (8-24); CO2, Blood 23.0 mmol/L (21-32); Calcium, Blood 9.0 mg/dL (8.5-10.1); Chloride, Blood 113.0 mmol/L (98-108); Creatinine, Blood 1.49 mg/dL (0.40-1.00); Glucose, Blood 110.0 mg/dL (70-99); Potassium, Blood 3.6 mmol/L (3.5-5.5); Sodium, Blood 140.0 mmol/L (136-145)
[2025-06-21 08:22] VITALS: BP 131/68
--- NOTE | 2025-06-21 17:11 | NUR ---
END OF SHIFT NOTE PT SLEPT A LOT OF THE DAY, UNTIL ABOUT 1600. SHE THEN GOT UP TO USE THE BATHROOM, HAD A BM AND VERY LARGE VOID. PT UP WITH MIN ASSISTANCE, SHE DOESNT USE A WALKER AT BASELINE, BUT DID USE IT A LITTLE GETTING TO THE BATHROOM AND BACK TO THE BED, BUT WAS STEADY ON HER FEET. SHE DIDNT EAT BREAKFAST OR LUNCH BUT DID EAT A SNACK WHILE WAITING FOR DINNER. LUNG SOUNDS CLEAR, GOOD BOWEL TONES. PT GETTING IV ANTIBIOTICS, IV INFILTRATED PRIOR TO INFUSION. 22G PLACED IN LEFT AC, PT TOLERATED WELL. PT WAS GIVEN BACK HER PHONE, PT APPOLIGIZED FOR WHAT SHE DID LAST NIGHT, STATING SHE FELT LIKE SHE WAS BEING ATTACKED AND DIDNT KNOW WHAT ELSE TO DO. PT AGREED NOT TO HIT OR STAB ANYONE WITH THE COMB OR PHONE.
[2025-06-21 19:33] VITALS: BP 115/89
[2025-06-21 23:46] VITALS: BP 125/55
[2025-06-22 03:25] VITALS: BP 150/81
[2025-06-22 05:28] LABS: Hematocrit 34.3 % (33.0-51.0); Hemoglobin 11.0 g/dL (11.5-16.0); Mean Corpuscular HGB Conc 32.1 g/dL (31.5-36.5); Mean Corpuscular Volume 98 fL (80-100); Platelet Count 142 K/mm3 (150-400); RDW Coefficient Variation 14.1 % (11.7-14.2); RDW Standard Deviation 51.4 fL (35.1-46.3)
[2025-06-22 05:33] LABS: NRBC ABSOLUTE 0.00 K/mm3 (0.00-0.02); NRBC Auto 0.0 /100 WBC (0.0-0.2)
[2025-06-22 05:54] LABS: Anion Gap 8.0 mmol/L (3-11); Blood Urea Nitrogen 21.0 mg/dL (8-24); CO2, Blood 24.0 mmol/L (21-32); Calcium, Blood 9.0 mg/dL (8.5-10.1); Chloride, Blood 110.0 mmol/L (98-108); Creatinine, Blood 1.39 mg/dL (0.40-1.00); Glucose, Blood 121.0 mg/dL (70-99); Potassium, Blood 3.7 mmol/L (3.5-5.5); Sodium, Blood 138.0 mmol/L (136-145)
[2025-06-22 06:29] LABS: BASOPHILS ABSOLUTE MAN 0.00 K/mm3 (0.00-0.23); BASOPHILS PERCENT MAN 0 % (0-2); EOSINOPHILS ABSOLUTE MAN 0.39 K/mm3 (0.00-0.68); EOSINOPHILS PERCENT MAN 6 % (0-6); LYMPHOCYTES ABSOLUTE MAN 2.28 K/mm3 (0.84-5.20); LYMPHOCYTES PERCENT MAN 35 % (21-46); MONOCYTES ABSOLUTE MAN 0.26 K/mm3 (0.16-1.47); MONOCYTES PERCENT MAN 4 % (4-13); NEUTROPHILS ABSOLUTE MAN 3.59 K/mm3 (1.96-9.15); SEG NEUTROPHILS PERCENT MAN 55 % (41-73)
--- NOTE | 2025-06-22 06:59 | NUR ---
Shift Summary AOx3, pleasant. Engages in conversations. C/O 12/13 generalized pain and requesting pain medication. Medicated x 1 for pain with good effect down to 10/15. Had ambulated the hallway because patient had insomnia and anxiety. Melatonin ineffective for sleep. Patient takes ambien to help with insomnia at baseline but has none ordered here. Ativan given for anxiety. Patient finally fell asleep after 4am. Tele: SR w/ no acute events reported by tele monitor. Continent to bathroom. 1PA w/ FWW. Can be impulsive at times. Report handed off to Sharmaine Alonso RN. Care relinquished.
[2025-06-22 07:35] VITALS: BP 109/50
[2025-06-22] MEDS ORDERED: Ampicillin Sod 2,000 MG in NS 100 ML IV SCH (08:30)
[2025-06-22 10:46] VITALS: BP 136/71
[2025-06-22 16:12] VITALS: BP 138/97
--- NOTE | 2025-06-22 18:23 | NUR ---
SHIFT SUMMARY PATIENT A/OX4, ABLE TO MAKE NEEDS KNOWN. PLEASANT AND COOPERATIVE WITH CARE. NO HALLUCINATIONS NOTED, PATIENT FREINDLY AND TALKATIVE WITH STAFF.PATIENT COMPLAINING OF APHASIA THIS MORNING AND DIFFICULTY FINDING WORDS, SPEECH THERAPY ORDERED. PATIENT COMPLAINING OF HEADACHE RELATED PAIN THIS AFTERNOON, MEDICATED PER MAR. PATIENT 1 PERSON ASSIST AND ABLE TO PARTICIPATE IN PHYSICAL THERAPY TODAY. MD NOTIFIED THIS EVENING THAT PATIENT IS REQUESTING HOME MEDICATIONS OF AMBIEN AND ALLERGY MEDICATION, NEW ORDERS RECIEVED. TELEMTRY IN PLACE, NO EVENTS NOTED THIS SHIFT, SINUS RHYTHYM 90s WITH 1ST DEGREE, BBB, PACs, AND PVCs. IV ABX FREQUENCY INCREASED THIS SHIFT, INFUSED PER NOV. NO OTHER CONCERNS AT THIS TIME.
[2025-06-22 19:36] VITALS: BP 143/68
[2025-06-22 23:47] VITALS: BP 121/54
--- NOTE | 2025-06-23 01:00 | NUR ---
Requesting Logistics Analytics Manager AOx3-4. Pleasant. Tearful tonight after best friend, Josefina, left home. Patient noticing increasing tremors to bilatearl hands and more forgetful lately. Is aware she may not return to her baseline living situation and coming to the realization that she may now be more of a burden to her only friend Josefina whom she have never had to rely on until now. Expressed sadness RE unresolved matters with nieces/nephews, the only families she has left, who she felt has abandoned her with no explanations. Shared memories of younger nieces/nephews when they used to come over for the weekends to visit her. States she's always been a fighter and now, it seems the end is nearing. Displays understanding and acceptance that no one lives forever, but hard to accept her current situation could be her last. Wanted to speak to a Logistics Analytics Manager, one who is older (at least 50 yo and above). Spiritual Care consult placed.
[2025-06-23 03:39] VITALS: BP 117/64
[2025-06-23 05:51] LABS: BASOPHILS ABSOLUTE AUTO 0.05 K/mm3 (0.00-0.23); BASOPHILS PERCENT AUTO 1 % (0-2); EOSINOPHILS ABSOLUTE AUTO 0.20 K/mm3 (0.00-0.68); EOSINOPHILS PERCENT AUTO 3 % (0-6); Hematocrit 34.5 % (33.0-51.0); Hemoglobin 11.1 g/dL (11.5-16.0); IMMATURE GRAN ABSOLUTE AUTO 0.02 K/mm3 (0.00-0.10); IMMATURE GRAN PERCENT AUTO 0 % (0-1); LYMPHOCYTES ABSOLUTE AUTO 1.68 K/mm3 (0.84-5.20); LYMPHOCYTES PERCENT AUTO 27 % (21-46); MONOCYTES ABSOLUTE AUTO 0.67 K/mm3 (0.16-1.47); MONOCYTES PERCENT AUTO 11 % (4-13); Mean Corpuscular HGB Conc 32.2 g/dL (31.5-36.5); Mean Corpuscular Volume 97 fL (80-100); NEUTROPHILS ABSOLUTE AUTO 3.68 K/mm3 (1.96-9.15); NEUTROPHILS PERCENT AUTO 58 % (41-73); NRBC ABSOLUTE 0.00 K/mm3 (0.00-0.02); NRBC Auto 0.0 /100 WBC (0.0-0.2); Platelet Count 139 K/mm3 (150-400); RDW Coefficient Variation 13.8 % (11.7-14.2); RDW Standard Deviation 49.5 fL (35.1-46.3)
[2025-06-23 06:19] LABS: Anion Gap 9.0 mmol/L (3-11); Blood Urea Nitrogen 18.0 mg/dL (8-24); CO2, Blood 25.0 mmol/L (21-32); Calcium, Blood 8.7 mg/dL (8.5-10.1); Chloride, Blood 109.0 mmol/L (98-108); Creatinine, Blood 1.48 mg/dL (0.40-1.00); Glucose, Blood 95.0 mg/dL (70-99); Potassium, Blood 4.0 mmol/L (3.5-5.5); Sodium, Blood 139.0 mmol/L (136-145)
[2025-06-23 07:02] VITALS: BP 131/64
--- NOTE | 2025-06-23 08:08 | NUR ---
Shift Summary Overall good night. Patient is tearful tonight but slept well with Ambien. Medicated x 1 for generalized pain with good effect. Up to bathroom x 1pa FWW. Bed alarm on. Call light near.
[2025-06-23] MEDS ORDERED: Ampicillin Sod 2,000 MG in NS 100 ML IV SCH (09:00)
[2025-06-23 11:03] VITALS: BP 124/51
[2025-06-23 16:07] VITALS: BP 130/67
[2025-06-23 19:59] VITALS: BP 142/79
--- NOTE | 2025-06-23 20:01 | NUR ---
SHIFT SUMMARY PT A&OX4. PT ADMITTED DUE TO ACUTE ENCEPHALOPATHY. PT ABLE TO MAKE NEEDS KNOWN. PT TALKATIVE WITH STAFF. PT COMPLAINS OF APHASIA AND HAS DUFFICULTY FINDING WORDS AT TIMES. PT IN TELE, NO TELE REPORTS NOTED. PT HAD SHOWER TODAY. PT WORKED WITH OCCUPATIONAL THERAPY TODAY. OCCUPATIONAL THERAPY DID COGNITIVE EVAL TODAY. PT SCORED 22/30 ACCORDING TO OT. PT IS 1P ASSIST WITH WALKER. VSS. PT RECEIVED IV ANTIBIOTICS. SPIRITUAL CARE ORDERED. PT REPORTS GENERALIZED PAIN/NEUROPATHY, MEDICATED PER EMAR. PT IN BED, BED IN LOWEST POSITION, BED LOCKED, CALL LIGHT IN REACH.
[2025-06-24 00:46] VITALS: BP 146/81
[2025-06-24 02:50] VITALS: BP 160/92
[2025-06-24 05:08] LABS: BASOPHILS ABSOLUTE AUTO 0.05 K/mm3 (0.00-0.23); BASOPHILS PERCENT AUTO 1 % (0-2); EOSINOPHILS ABSOLUTE AUTO 0.18 K/mm3 (0.00-0.68); EOSINOPHILS PERCENT AUTO 3 % (0-6); Hematocrit 35.4 % (33.0-51.0); Hemoglobin 11.3 g/dL (11.5-16.0); IMMATURE GRAN ABSOLUTE AUTO 0.01 K/mm3 (0.00-0.10); IMMATURE GRAN PERCENT AUTO 0 % (0-1); LYMPHOCYTES ABSOLUTE AUTO 1.86 K/mm3 (0.84-5.20); LYMPHOCYTES PERCENT AUTO 26 % (21-46); MONOCYTES ABSOLUTE AUTO 0.62 K/mm3 (0.16-1.47); MONOCYTES PERCENT AUTO 9 % (4-13); Mean Corpuscular HGB Conc 31.9 g/dL (31.5-36.5); Mean Corpuscular Volume 98 fL (80-100); NEUTROPHILS ABSOLUTE AUTO 4.33 K/mm3 (1.96-9.15); NEUTROPHILS PERCENT AUTO 61 % (41-73); NRBC ABSOLUTE 0.00 K/mm3 (0.00-0.02); NRBC Auto 0.0 /100 WBC (0.0-0.2); Platelet Count 139 K/mm3 (150-400); RDW Coefficient Variation 13.5 % (11.7-14.2); RDW Standard Deviation 49.1 fL (35.1-46.3)
--- NOTE | 2025-06-24 05:15 | NUR ---
[id number] ASSUMED CARE @1900 PT HAS BEEN PLEASANT W/ NO COMPLAINTS NO CHANGES FROM PREVIOUS ASSESSMENT, PT REQUESTS NORCO @2330 AND IT IS RECEIVED AT 0030 STATING SHE WAS HURTING A LITTLE BIT BUT WANTED TO STAY AHEAD OF HER GENERAL PAIN. 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 GAVE PT MELATONIN ~230 TO FACILITATE BETTER SLEEP AND PT HAS REMAINED RESTING IN BED
[2025-06-24 05:39] LABS: Anion Gap 8.0 mmol/L (3-11); Blood Urea Nitrogen 19.0 mg/dL (8-24); CO2, Blood 24.0 mmol/L (21-32); Calcium, Blood 9.2 mg/dL (8.5-10.1); Chloride, Blood 109.0 mmol/L (98-108); Creatinine, Blood 1.36 mg/dL (0.40-1.00); Glucose, Blood 102.0 mg/dL (70-99); Potassium, Blood 4.0 mmol/L (3.5-5.5); Sodium, Blood 137.0 mmol/L (136-145)
[2025-06-24 07:30] VITALS: BP 126/67
[2025-06-24 11:29] VITALS: BP 155/87
[2025-06-24 15:46] VITALS: BP 124/70
[2025-06-24] MEDS ORDERED: Ampicillin Sod 2,000 MG in NS 100 ML IV SCH (16:00)
--- NOTE | 2025-06-24 18:09 | NUR ---
SHIFT SUMMARY PT A&OX4, VSS, RA, SR 80S ON TELE. IV ABX CONTINUED. AFTER WITNESSING PT WALK STEADILY WITH OT, PT INDEPENDENT IN ROOM. FRIEND NOT SURE IF SHE CAN TAKE CARE OF PT IF DISCHARGED AT THIS TIME, CASE MANAGMENT INVOLVED. PT PLEASANT AND COOPERATIVE WITH ALL CARES, CALL LIGHT IN REACH.
[2025-06-24 19:46] VITALS: BP 144/66
[2025-06-25 00:29] VITALS: BP 121/66
[2025-06-25 04:28] VITALS: BP 109/49
--- NOTE | 2025-06-25 05:13 | NUR ---
SHIFT SUMMARY; PATIENT ABLE TO SLEEP IN LONG INTERVAL, HAD TO WAKE HER AT MD AND 4 FOR VITALS. MEDICATED FOR PAIN. TELE SR 91. PLEASANT AND TALKATIVE.
[2025-06-25 06:09] LABS: BASOPHILS ABSOLUTE AUTO 0.05 K/mm3 (0.00-0.23); BASOPHILS PERCENT AUTO 1 % (0-2); EOSINOPHILS ABSOLUTE AUTO 0.20 K/mm3 (0.00-0.68); EOSINOPHILS PERCENT AUTO 3 % (0-6); Hematocrit 35.2 % (33.0-51.0); Hemoglobin 11.2 g/dL (11.5-16.0); IMMATURE GRAN ABSOLUTE AUTO 0.03 K/mm3 (0.00-0.10); IMMATURE GRAN PERCENT AUTO 1 % (0-1); LYMPHOCYTES ABSOLUTE AUTO 1.84 K/mm3 (0.84-5.20); LYMPHOCYTES PERCENT AUTO 28 % (21-46); MONOCYTES ABSOLUTE AUTO 0.59 K/mm3 (0.16-1.47); MONOCYTES PERCENT AUTO 9 % (4-13); Mean Corpuscular HGB Conc 31.8 g/dL (31.5-36.5); Mean Corpuscular Volume 99 fL (80-100); NEUTROPHILS ABSOLUTE AUTO 3.95 K/mm3 (1.96-9.15); NEUTROPHILS PERCENT AUTO 59 % (41-73); NRBC ABSOLUTE 0.00 K/mm3 (0.00-0.02); NRBC Auto 0.0 /100 WBC (0.0-0.2); Platelet Count 132 K/mm3 (150-400); RDW Coefficient Variation 13.5 % (11.7-14.2); RDW Standard Deviation 49.3 fL (35.1-46.3)
[2025-06-25 06:31] LABS: Alanine Aminotransfer (ALT/SGP 21.0 U/L (12-78); Albumin, Blood 3.2 g/dL (3.4-5.0); Albumin/Globulin Ratio 1.0 (0.8-1.8); Anion Gap 10.0 mmol/L (3-11); Aspartate Aminotrans (AST/SGOT 13.0 U/L (12-37); Bilirubin, Total 0.2 mg/dL (0.1-1.0); Blood Urea Nitrogen 19.0 mg/dL (8-24); CO2, Blood 24.0 mmol/L (21-32); Calcium, Blood 9.0 mg/dL (8.5-10.1); Chloride, Blood 108.0 mmol/L (98-108); Creatinine, Blood 1.39 mg/dL (0.40-1.00); Globulin, Blood 3.2 g/dL (2.2-4.0); Glucose, Blood 118.0 mg/dL (70-99); Potassium, Blood 3.7 mmol/L (3.5-5.5); Sodium, Blood 138.0 mmol/L (136-145); Total Protein, Blood 6.4 g/dL (6.4-8.2)
[2025-06-25 07:34] VITALS: BP 133/74
[2025-06-25 11:18] VITALS: BP 113/57
[2025-06-25] MEDS ORDERED: DILT60ER PO (14:49)
[2025-06-25] MEDS ORDERED: MELATONIN5 M1 PO (14:49)
[2025-06-25] MEDS ORDERED: NITR100CA PO (14:50)
[2025-06-25] MEDS ORDERED: VISBIOME 112.51 EACH PO (14:50)
--- NOTE | 2025-06-25 18:26 | NUR ---
DISCHARGE PT DISCHARGED HOME WITH FRIEND ESTRADA. EDUCATION PROVIDED, ALL QUESTIONS ANSWERED. PRESCRIPTIONS FAXED TO [email or web address].
== END 2025-06-25 17:26 | disposition home health service (06) | DRG 871 ==
LOC: ER 21:14 → PCU 23:34 → MEDS 06-18 12:36
PROVIDERS: Emergency Medicine; Family Medicine; Internal Medicine; ADMIT Internal Medicine
PROC: 3E02340 Introduction of Influenza Vaccine into Muscle, Percutaneous Approach (ICD-10-PCS; 2025-06-16)
PROC: 0T9B70Z Drainage of Bladder with Drainage Device, Via Natural or Artificial Opening (ICD-10-PCS; principal; 2025-06-17)
PROC: 3E03329 Introduction of Other Anti-infective into Peripheral Vein, Percutaneous Approach (ICD-10-PCS; 2025-06-17)
DX: A41.81 Sepsis due to Enterococcus (principal); G93.41 Metabolic encephalopathy; N39.0 Urinary tract infection, site not specified; F03.911 Unspecified dementia, unspecified severity, with agitation; E87.20 Acidosis, unspecified; I25.10 Atherosclerotic heart disease of native coronary artery without angina pectoris; E03.9 Hypothyroidism, unspecified; M79.7 Fibromyalgia; G47.33 Obstructive sleep apnea (adult) (pediatric); E78.5 Hyperlipidemia, unspecified; N18.30 Chronic kidney disease, stage 3 unspecified; I12.9 Hypertensive chronic kidney disease with stage 1 through stage 4 chronic kidney disease, or unspecified chronic kidney disease; Z96.653 Presence of artificial knee joint, bilateral; R45.6 Violent behavior; Z78.1 Physical restraint status; R65.20 Severe sepsis without septic shock; E83.52 Hypercalcemia; I48.0 Paroxysmal atrial fibrillation; E87.6 Hypokalemia; R33.8 Other retention of urine; I73.9 Peripheral vascular disease, unspecified; A63.0 Anogenital (venereal) warts; I45.10 Unspecified right bundle-branch block; Z87.820 Personal history of traumatic brain injury; Z88.5 Allergy status to narcotic agent; Z79.891 Long term (current) use of opiate analgesic; Z79.899 Other long term (current) drug therapy; Z90.710 Acquired absence of both cervix and uterus; Z90.13 Acquired absence of bilateral breasts and nipples; Z99.89 Dependence on other enabling machines and devices; Z87.19 Personal history of other diseases of the digestive system; Z95.5 Presence of coronary angioplasty implant and graft; Z98.41 Cataract extraction status, right eye; Z98.42 Cataract extraction status, left eye; I25.2 Old myocardial infarction; Z87.891 Personal history of nicotine dependence; Z79.82 Long term (current) use of aspirin; Z79.51 Long term (current) use of inhaled steroids; Z79.890 Hormone replacement therapy
CPT/HCPCS: 36415; 51701; 51702; 70450; 80048; 80053; 80320; 81001; 82550; 83605; 83880; 84145; 84439; 84443; 84484; 85025; 85027; 87040; 87077; 87086; 87186; 93005; 93010; 94640; 94664; 94760; 94762; 96374; 96375; 97110; 97116; 97129; 97161; 97165; 97530; 97535; 99285-25; A9270; J0290; J0360; J0696; J1630; J2060; J2543; J3480; J7030; J7050

== ENCOUNTER 2025-08-02 14:33 | Emergency (ER) | payer OTHER ==
[~2025-08-02] VITALS: Ht 162.6 cm; Wt 68.0 kg
[~2025-08-02 14:33] MED LIST changes: +BACLOFEN10 M4 PO; +DILT60ER PO; +ELIQUIS2.5 MG PO; +LEVETIRACETAM50014 PO; +MELATONIN5 M1 PO; +NITR100CA PO; +VISBIOME 112.51 EACH PO
[2025-08-02 14:47] VITALS: BP 168/94
== END 2025-08-02 16:30 | disposition home or self-care (01) ==
LOC: ER 14:33
DX: I82.612 Acute embolism and thrombosis of superficial veins of left upper extremity (principal); G47.33 Obstructive sleep apnea (adult) (pediatric); E78.5 Hyperlipidemia, unspecified; I12.9 Hypertensive chronic kidney disease with stage 1 through stage 4 chronic kidney disease, or unspecified chronic kidney disease; N18.30 Chronic kidney disease, stage 3 unspecified; E03.9 Hypothyroidism, unspecified; Z87.891 Personal history of nicotine dependence; Z79.51 Long term (current) use of inhaled steroids; Z79.02 Long term (current) use of antithrombotics/antiplatelets; Z79.899 Other long term (current) drug therapy; Z88.5 Allergy status to narcotic agent
CPT/HCPCS: 93971; 99283-25